=== PATIENT | female | born 1985 | race Caucasian/White ===

== ENCOUNTER 2021-11-08 09:14 | Emergency (ER) | payer BC, SELFPAY ==
[2021-11-08] VITALS (7 sets, daily range): BP systolic 92–107; BP diastolic 49–69; PULSE 61–73; RESP 18–20; TEMP 36.5–37; O2SAT 95–100; BMI 19.7
--- NOTE | 2021-11-08 09:37 | ED_ITS ---
HPI - General Adult General Chief complaint: Headache/Migraine Stated complaint: nausea and headache Time Seen by Provider: 11/08/21 09:25 History of Present Illness HPI narrative: This 35-year-old female comes in moaning with generalized aches and pains including headache. She states that she measured a temperature of a 103? yesterday and 102.7 today. She states that she has been taking ibuprofen and arrives here with a temperature that is normal at 97.7. She reports nausea and vomiting. Related Data Allergies Allergy/AdvReac Type Severity Reaction Status Date / Time amoxicillin Allergy Verified 11/08/21 10:23 clindamycin Allergy Verified 11/08/21 10:23 fentanyl Allergy Verified 11/08/21 09:50 midazolam [From Versed] Allergy Verified 11/08/21 09:50 Review of Systems Status of ROS: Reports: 10 or more systems reviewed and unremarkable except as noted in History and below Narrative: Constitutional: No weight gain or loss. She reports fevers. Eyes: No discharge. No vision changes. HENT: No congestion, no sore throat, no ear pain. Cardiovascular: No chest pain, no palpitations. Respiratory: No shortness of breath, no wheezes, no cough. Gastrointestinal: No abdominal pain, no diarrhea. She has nausea with vomiting. Genitourinary: No dysuria, no hematuria. Musculoskeletal: Normal range of motion. Skin: No rashes, no pruritis. Neurological: No dizziness, weakness, sensory change, speech change. Endo/Heme/Allergies: No bruising or bleeding. No polydipsia. Pysch: no suicidality, no anxiety, no insomnia. All other systems reviewed and are negative. [facility] Social History Smoking Status: Current every day smoker What tobacco products do you use: cigarettes Do you use any of these nicotine containing products: None Second hand tobacco smoke exposure: No How often do you have a drink containing alcohol: never AUDIT-C Alcohol total score: 0 Non-prescribed substance use: marijuana (any form) service: No Exam Narrative: Exam Narrative: Constitutional: Well-developed, well-nourished. She is moaning in generalized aches and pains. HEENT: Normocephalic, atraumatic. Neck: Normal range of motion. Nontender. Supple. Heart: Regular. No murmurs. Normal rate. Intact distal pulses. Lungs: Clear to auscultation. No chest discomfort. No wheezes, rhonchi, or rales. Abdomen: Normal bowel sounds. Nontender. No rebound tenderness. Genitalia: Deferred. Back: No midline tenderness. Normal range of motion. Extremities: Normal range of motion. No injury. Skin: Intact. No rash. Warm. No erythema or pallor. Neurologic: No altered sensation. No weakness. Alert and oriented. Nursing notes and vitals signs are reviewed. Const: Vital Signs, click to edit/add: Vital Signs - 24 hr 11/08/21 09:18 11/08/21 09:30 11/08/21 09:35 Temperature 97.7 F Pulse Rate [Pulse Oximeter] 61 66 65 Respiratory Rate 20 20 Blood Pressure [Le ft Upper Arm] 99/62 107/69 107/69 Pulse Oximetry 100 100 11/08/21 10:00 11/08/21 10:30 Temperature Pulse Rate [Pulse Oximeter] 64 73 Respiratory Rate 18 Blood Pressure [Le ft Upper Arm] 99/59 L 97/59 L Pulse Oximetry 99 98 Course Vital Signs Vital signs: Initial Vital Signs Temperature Source Temporal Artery Scan 11/08/21 09:18 Pulse Rate 61 11/08/21 09:18 Respiratory Rate 20 11/08/21 09:18 Blood Pressure 99/62 11/08/21 09:18 Blood Pressure Mean 74 11/08/21 09:18 Oxygen Delivery Method 11/08/21 09:18 Vital Signs Pulse Rate 61 11/08/21 09:18 Respiratory Rate 20 11/08/21 09:18 Blood Pressure 99/62 11/08/21 09:18 Temperature 97.7 F 11/08/21 09:35 Pulse Rate 73 11/08/21 10:30 Respiratory Rate 18 11/08/21 10:30 Blood Pressure 97/59 L 11/08/21 10:30 Pulse Oximetry 98 11/08/21 10:30 Medical Decision Making MDM Narrative Medical decision making narrative: This patient came in with severe discomfort from headache. She gets severe headaches and this is a typical recurrence. She was reporting a fever so labs were drawn to work this up. Her temperature here has been normal throughout her visit. Lab results also returned with normal findings including no leukocytosis and a normal lactate level. The patient received IV doses normal saline 1 L, Toradol 30 mg, Zofran 4 mg, and Benadryl 50 mg. This brought some relief to her symptoms where she related her headache at 6/10 in severity. She then received 20 mg of ketamine infused slowly over 20-30 minutes. This brought complete relief to her headache. She feels okay to return home and will continue her current plans. Lab Data Labs: Lab Results 11/08/21 11/08/21 11/08/21 Range/Units 09:40 09:40 09:40 WBC 2.72 L (4.50-11.00) K/uL RBC 4.67 (4.00-5.20) m/uL Hgb 14.1 (12.0-16.0) gm/dL Hct 42.2 (33.0-51.0) % MCV 90 (80-100) fL MCH 30 (26-34) pg MCHC 33 (32-36) gm/dL RDW Coeff of [place] 12.8 (11.5-15.5) % Plt Count 141 (140-440) K/uL Neut % (Auto) 78.0 H (42.0-72.0) % Lymph % (Auto) 7.7 L (20-44) % [place] % (Auto) 12.9 H (0.0-11.0) % Eos % (Auto) 0.7 (0.0-7.0) % Baso % (Auto) 0.7 (0.0-3.0) % Neut # (Auto) 2.10 (1.7-7.0) K/uL Lymph # (Auto) 0.20 L (0.90-2.90) K/uL [place] # (Auto) 0.40 (0.00-0.90) K/UL Eos # (Auto) 0.00 (0.00-0.50) K/uL Baso # (Auto) 0.00 (0.00-0.30) K/uL Abs Immat Gran (auto) 0.00 (0.00-0.30) K/uL Sodium 135 (135-149) mmol/L Potassium 3.4 L (3.6-5.1) mmol/L Chloride 106 (96-114) mmol/L Carbon Dioxide 23 (20-32) mmol/L BUN 13 (5-24) mg/dL Creatinine 0.8 (0.5-1.5) mg/dL Estimated Creat Clear 79.29 Estimated GFR 97 ml/min Glucose 88 (60-115) mg/dL Lactate 0.8 (0.5-1.9) mmol/L Calcium 8.6 (8.4-10.6) mg/dL Discharge Plan Discharge Clinical Impression: Headache Patient Disposition: Home, Self-Care Condition: Improved Instructions: Acute Headache (ED) Additional Instructions: Continue current plans. Follow up with MD or return if recurrent or worsening symptoms happen. Follow Up/Referrals: Evon Lange MD [Primary Care Provider] - Stand Alone Forms: [employer] Info Instructions
[2021-11-08 09:50] LABS: Lactate* 0.8 mmol/L (0.5-1.9)
[2021-11-08] MEDS: 0.9 % SODIUM CHLORIDE 1000 ml 1,000 ML IV (09:50)
[2021-11-08 09:51] LABS: Basophils Percent Auto 0.7 % (0.0-3.0); Eosinophils Percent Auto 0.7 % (0.0-7.0); Hematocrit 42.2 % (33.0-51.0); Hemoglobin* 14.1 gm/dL (12.0-16.0); Lymphocytes Percent Auto 7.7 % (20-44); Mean Corpuscular HGB Conc 33 gm/dL (32-36); Mean Corpuscular Hemoglobin 30 pg (26-34); Mean Corpuscular Volume 90 fL (80-100); Monocytes Percent Auto 12.9 % (0.0-11.0); Platelet Count* 141 K/uL (140-440); RDW Coefficient of Variation % 12.8 % (11.5-15.5); Red Blood Count 4.67 m/uL (4.00-5.20); White Blood Count* 2.72 K/uL (4.50-11.00)
[2021-11-08] MEDS: KETOROLAC 30 MG/ML inj IVP (09:56)
[2021-11-08 09:57] LABS: Slide Review Reflex No
[2021-11-08] MEDS: diphenhydrAMINE 50 MG/ML inj IVP (09:57)
[2021-11-08] MEDS: METOCLOPRAMIDE HCL 5 MG/ML INJ 10 MG IV (10:04)
[2021-11-08 10:24] LABS: Chloride* 106 mmol/L (96-114); Potassium* 3.4 mmol/L (3.6-5.1); Sodium* 135 mmol/L (135-149)
[2021-11-08 10:27] LABS: Blood Urea Nitrogen* 13 mg/dL (5-24); Carbon Dioxide* 23 mmol/L (20-32); Creatinine* 0.8 mg/dL (0.5-1.5); Est. Creatinine Clearance* 79.29; Estimated Glomerular Filt Rate 97 ml/min
[2021-11-08 10:28] LABS: Calcium* 8.6 mg/dL (8.4-10.6); Glucose* 88 mg/dL (60-115)
[2021-11-08] MEDS: KETAMINE HCL 20 MG in 0.9 % SODIUM CHLORIDE 100 ml 100 ML 300.6 MG IVPB (10:57)
== END 2021-11-08 11:45 | disposition home or self-care (01) ==
PROVIDERS: Emergency Provider Emergency Medicine Emergency Medical Services; PCP Family Medicine
DX: R51.9 Headache, unspecified (principal)
CPT/HCPCS: 36415; 80048; 83605; 85025; 87040; 96365; 96375; 99284; J1200; J1885; J2765; J3490; J7030

== ENCOUNTER 2021-11-14 15:50 | Emergency (ER) | payer BC, SELFPAY ==
[2021-11-14 16:26] VITALS: BP 116/75; PULSE 66; RESP 18; TEMP 36.8; O2SAT 98; BMI 19.7
--- NOTE | 2021-11-14 18:06 | ED.NURSE ---
Pt walked out of room stating she wanted to just go home. Advised pt that the ER was busy tonight and she would be seen shorty. Pt declined to wait, stating that she wanted to lay down. Pt was in room 4, which was the only room available at the time she was brought back from the lobby. Offered to try to find a physician t see who much longer it would take and pt declined. Offered to give pt the pt advocate information and pt declined. Pt signed refusal of services.
--- NOTE | 2021-11-14 18:30 | ED.NURSE ---
pt left without being seen by ER
== END 2021-11-14 18:06 | disposition left against medical advice (07) ==
PROVIDERS: PCP Family Medicine
DX: Z53.21 Procedure and treatment not carried out due to patient leaving prior to being seen by health care provider (principal)
CPT/HCPCS: 99281

== ENCOUNTER 2022-02-02 19:00 | Emergency (ER) | payer BC, SELFPAY ==
[2022-02-02 19:32] VITALS: BP 145/92; PULSE 64; RESP 16; TEMP 36.8; O2SAT 98; BMI 20.6
--- NOTE | 2022-02-02 20:08 | ED_ITS ---
HPI - Dental/Oral General Chief complaint: Dental/Oral/Mouth Injury/Pain Stated complaint: Tooth Infection Time Seen by Provider: 02/02/22 19:54 History of Present Illness HPI Narrative: Pt is a 36 year old woman who broke a premolar earlier today on the bottom right. She has severe pain. No fever or chills, nausea or vomiting. Pain is sharp. Pt unable to get the pain under control with tylenol or motrin. No further symptoms. Can not get in with dentist today. Related Data Home Medications Medication Instructions Recorded Confirmed citalopram 10 mg tablet 30 mg DAILY 11/14/21 Tylenol 02/02/22 ibuprofen 02/02/22 Allergies Allergy/AdvReac Type Severity Reaction Status Date / Time amoxicillin Allergy Verified 02/02/22 19:36 clindamycin Allergy Verified 02/02/22 19:36 fentanyl Allergy Verified 02/02/22 19:36 midazolam [From Versed] Allergy Verified 02/02/22 19:36 Review of Systems Status of ROS: Reports: 10 or more systems reviewed and unremarkable except as noted in History and below [facility] Social History Smoking Status: Current every day smoker What tobacco products do you use: cigarettes Do you use any of these nicotine containing products: None Second hand tobacco smoke exposure: No How often do you have a drink containing alcohol: never AUDIT-C Alcohol total score: 0 Non-prescribed substance use: marijuana (any form) service: No Exam Narrative: Exam Narrative: EXAM GENERAL: Patient appears acutely uncomfortable. Dental exam shows a chipped premolar in the right lower plate. Mild swelling noted around the gingiva EYES: No scleral icterus. ENT: Tympanic membranes and oropharynx normal. THYROID: no thyroid nodules or thyromegaly. LYMPH: No supraclavicular or cervical lymphadenopathy. SKIN: Visible skin seen during exam normal or with benign process only. EXT: No dependent lower extremity pedal edema. HEART: Regular rate and rhythm with no murmurs, rubs, or gallops. LUNGS: Clear to auscultation bilaterally with no crackles or wheezes. ABD: Soft, non tender, non distended. PSYCH: Good eye contact, speech is not pressured. Const: Vital Signs, click to edit/add: Vital Signs - 24 hr 02/02/22 19:32 Temperature 98.3 F Pulse Rate [Left P ulse Oximeter] 64 Respiratory Rate 16 Blood Pressure [Ri ght Upper Arm] 145/92 H Pulse Oximetry 98 Oxygen Delivery Me thod Room Air Course Vital Signs Vital signs: Initial Vital Signs Temperature 98.3 F 02/02/22 19:32 Temperature Source Temporal Artery Scan 02/02/22 19:32 Pulse Rate 64 02/02/22 19:32 Respiratory Rate 16 02/02/22 19:32 Blood Pressure 145/92 H 02/02/22 19:32 Blood Pressure Mean 109 02/02/22 19:32 Blood Pressure Position Sitting 02/02/22 19:32 Pulse Oximetry 98 02/02/22 19:32 Oxygen Delivery Method 02/02/22 19:32 Vital Signs Temperature 98.3 F 02/02/22 19:32 Pulse Rate 64 02/02/22 19:32 Respiratory Rate 16 02/02/22 19:32 Blood Pressure 145/92 H 02/02/22 19:32 Pulse Oximetry 98 02/02/22 19:32 Oxygen Delivery Method 02/02/22 19:32 Temperature 98.3 F 02/02/22 19:32 Pulse Rate 64 02/02/22 19:32 Respiratory Rate 16 02/02/22 19:32 Blood Pressure 145/92 H 02/02/22 19:32 Pulse Oximetry 98 02/02/22 19:32 Oxygen Delivery Method 02/02/22 19:32 MDM - Dental/Oral MDM Narrative Medical decision making narrative: Pt presents with severe dental pain. No history of narcotic misuse. Pt has no other symptoms and will be treated with Amoxicillin and Arion with Dental follow up. Differential Diagnosis Differential diagnosis: Likely gingival abscess, dental caries, toothache, dental abscess and fracture of tooth Discharge Plan Discharge Clinical Impression: Toothache Patient Disposition: Home, Self-Care Condition: Stable Instructions: Toothache (ED) Additional Instructions: Arion and Amoxicillin as directed Activity Level: No Restrictions Discharge Diet: Regular Prescriptions: No Action citalopram 10 mg tablet 30 mg DAILY ibuprofen Tylenol Follow Up/Referrals: Evon Lange MD [Primary Care Provider] - Stand Alone Forms: [facility] Info Instructions
== END 2022-02-02 20:23 | disposition home or self-care (01) ==
PROVIDERS: Emergency Provider Internal Medicine; PCP Family Medicine
DX: K08.89 Other specified disorders of teeth and supporting structures (principal)
CPT/HCPCS: 99283; 99284

== ENCOUNTER 2022-04-15 15:43 | Emergency (ER) | payer BC, SELFPAY ==
[2022-04-15 16:38] VITALS: BP 117/78; PULSE 67; RESP 16; TEMP 36.6; O2SAT 97; BMI 19.7
[2022-04-15 16:52] LABS: Strep A DNA Probe* NOT DETECTED (Not Detectd)
[2022-04-15 17:05] LABS: PCR FLU A Negative PCR FLU A (Negative); PCR FLU B Negative PCR FLU B (Negative); PCR RSV Negative PCR RSV (Negative)
[2022-04-15 17:06] LABS: SARS PCR* Negative SARS-CoV-2 (Negative)
--- NOTE | 2022-04-15 17:27 | ED_ITS ---
HPI - General Adult General Chief complaint: Sore Throat Stated complaint: Requests a strep test Time Seen by Provider: 04/15/22 16:34 History of Present Illness HPI narrative: This 36-year-old female comes in reporting sore throat and cough for the past couple weeks. She states that her sore throat has worsened so she comes in requesting a strep test. She states that she is a smoker. 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 She does not report any fevers. Related Data Home Medications Medication Instructions Recorded Confirmed citalopram 10 mg tablet 30 mg DAILY 11/14/21 Tylenol 02/02/22 ibuprofen 02/02/22 Previous Rx's Medication Instructions Recorded azithromycin 250 mg tablet See Rx Instructions PO .COMPLEX #6 04/15/22 (Zithromax Z-Vinod) tabs Allergies Allergy/AdvReac Type Severity Reaction Status Date / Time amoxicillin Allergy Verified 02/02/22 19:36 clindamycin Allergy Verified 02/02/22 19:36 fentanyl Allergy Verified 02/02/22 19:36 midazolam [From Versed] Allergy Verified 02/02/22 19:36 Review of Systems Status of ROS: Reports: 10 or more systems reviewed and unremarkable except as noted in History and below Narrative: Constitutional: No fevers, no weight gain or loss. Eyes: No discharge. No vision changes. HENT: No congestion, no ear pain. Sore throat. Cardiovascular: No chest pain, no palpitations. Respiratory: No shortness of breath, no wheezes. Productive cough. Gastrointestinal: No abdominal pain, no vomiting, no diarrhea. Genitourinary: No dysuria, no hematuria. Musculoskeletal: Normal range of motion. Skin: No rashes, no pruritis. Neurological: No dizziness, weakness, sensory change, speech change. Endo/Heme/Allergies: No bruising or bleeding. No polydipsia. Pysch: no suicidality, no anxiety, no insomnia. All other systems reviewed and are negative. [facility] Social History Smoking Status: Current every day smoker What tobacco products do you use: cigarettes Do you use any of these nicotine containing products: None Second hand tobacco smoke exposure: No How often do you have a drink containing alcohol: never AUDIT-C Alcohol total score: 0 Non-prescribed substance use: marijuana (any form) service: No Exam Narrative: Exam Narrative: Constitutional: Well-developed, well-nourished, no acute distress. HEENT: Normocephalic, atraumatic. Moderate tonsillar hypertrophy with erythema and exudate bilaterally. Neck: Normal range of motion. Nontender. Supple. Heart: Regular. No murmurs. Normal rate. Intact distal pulses. Lungs: Clear to auscultation. No chest discomfort. No wheezes, rhonchi, or rales. Abdomen: Normal bowel sounds. Nontender. No rebound tenderness. Genitalia: Deferred. Back: No midline tenderness. Normal range of motion. Extremities: Normal range of motion. No injury. Skin: Intact. No rash. Warm. No erythema or pallor. Neurologic: No altered sensation. No weakness. Alert and oriented. Psychiatric: No suicidality. No anxiety or depression. No insomnia. Nursing notes and vitals signs are reviewed. Const: Vital Signs, click to edit/add: Vital Signs - 24 hr 04/15/22 16:38 Temperature 97.9 F Pulse Rate [Right Pulse Oximeter] 67 Respiratory Rate 16 Blood Pressure [Ri ght Upper Arm] 117/78 Pulse Oximetry 97 Oxygen Delivery Me thod Room Air Course Vital Signs Vital signs: Initial Vital Signs Temperature 97.9 F 04/15/22 16:38 Temperature Source Temporal Artery Scan 04/15/22 16:38 Pulse Rate 67 04/15/22 16:38 Pulse Rhythm 04/15/22 16:38 Respiratory Rate 16 04/15/22 16:38 Blood Pressure 117/78 04/15/22 16:38 Blood Pressure Mean 91 04/15/22 16:38 Blood Pressure Position Sitting 04/15/22 16:38 Pulse Oximetry 97 04/15/22 16:38 Oxygen Delivery Method 04/15/22 16:38 Vital Signs Temperature 97.9 F 04/15/22 16:38 Pulse Rate 67 04/15/22 16:38 Respiratory Rate 16 04/15/22 16:38 Blood Pressure 117/78 04/15/22 16:38 Pulse Oximetry 97 04/15/22 16:38 Oxygen Delivery Method 04/15/22 16:38 Temperature 97.9 F 04/15/22 16:38 Pulse Rate 67 04/15/22 16:38 Respiratory Rate 16 04/15/22 16:38 Blood Pressure 117/78 04/15/22 16:38 Pulse Oximetry 97 04/15/22 16:38 Oxygen Delivery Method 04/15/22 16:38 Medical Decision Making MDM Narrative Medical decision making narrative: This patient comes in with upper respiratory symptoms that is most prominently a sore throat. She is a smoker. Strep test returns negative as does testing for COVID, influenza, and RSV. She has had symptoms for a couple weeks and the examination of her oropharynx does show tonsillar hypertrophy with exudate. She received a prescription for Zithromax. Lab Data Labs: Lab Results 04/15/22 04/15/22 Range/Units 16:06 16:06 SARS-CoV-2 (PCR) Negative SARS-CoV-2 (Negative) Influenza Type A (PCR) Negative PCR FLU A (Negative) Influenza Type B (PCR) Negative PCR FLU B (Negative) RSV (PCR) Negative PCR RSV (Negative) Group A Strep DNA NOT DETECTED (Not Detectd) Discharge Plan Discharge Clinical Impression: Acute tonsillitis Patient Disposition: Home, Self-Care Condition: Unchanged Additional Instructions: Take medication as prescribed. Follow up with MD or return if worsening. Prescriptions: New azithromycin [Zithromax Z-Vinod] 250 mg tablet See Rx Instructions .ROUTE .COMPLEX Qty: 6 0RF Rx Instructions: For 250 mg dose pack: take 500 mg today (day 1), then 250 mg for 4 days (days 2-5) No Action citalopram 10 mg tablet 30 mg DAILY ibuprofen Tylenol Follow Up/Referrals: Evon Lange MD [Primary Care Provider] - Stand Alone Forms: [employer] Info Instructions
== END 2022-04-15 18:20 | disposition home or self-care (01) ==
PROVIDERS: Emergency Provider Emergency Medicine Emergency Medical Services; PCP Family Medicine
DX: J03.90 Acute tonsillitis, unspecified (principal)
CPT/HCPCS: 87502; 87634; 87635; 87651; 99283; 99284

== ENCOUNTER 2022-11-29 11:44 | Emergency (ER) | payer BC, SELFPAY ==
[2022-11-29 11:47] VITALS: BP 135/77; PULSE 76; RESP 20; TEMP 36.7; BMI 21.6
--- NOTE | 2022-11-29 12:27 | ED_ITS ---
HPI - Back Pain/Injury General Chief Complaint: Back Injury/Pain Stated Complaint: back injury Time Seen by Provider: 11/29/22 11:48 History of Present Illness HPI Narrative: This 37-year-old female comes in reporting severe low back pain radiating down her whole left leg. This pain began about a week ago and has worsened since then. She does have a prior history of lumbar radiculopathy and has had therapeutic injections in the past. She states that her symptoms today feel worse. She does not report any altered bowel or urinary function and does not have saddle anesthesia. She has been taking Tylenol without much relief. She does not report any specific injury event. She did move to a new living situation about a week ago and this may have triggered some symptoms for her. She did present to a chiropractor who did do a straight leg raise it elicited pain with minimal elevation of her leg. He did manipulate her also and she states that she has been feeling worse since then. Related Data Home Medications Medication Instructions Recorded Confirmed citalopram 10 mg tablet 30 mg DAILY 11/14/21 Tylenol 02/02/22 ibuprofen 02/02/22 Previous Rx's Medication Instructions Recorded azithromycin 250 mg tablet See Rx Instructions PO .COMPLEX #6 04/15/22 (Zithromax Z-Vinod) tabs gabapentin 100 mg capsule 100 mg PO TID #30 caps 11/29/22 hydrocodone 5 mg-acetaminophen 325 1 tab PO Q4-6H PRN pain #20 tabs 11/29/22 mg tablet methylprednisolone 4 mg tablets in See Rx Instructions PO .COMPLEX 11/29/22 a dose pack (Medrol (Vinod)) #21 ea tizanidine 4 mg capsule (Zanaflex) 4 mg PO TID PRN muscle spasticity 11/29/22 #20 caps Allergies Allergy/AdvReac Type Severity Reaction Status Date / Time amoxicillin Allergy Verified 02/02/22 19:36 clindamycin Allergy Verified 02/02/22 19:36 fentanyl Allergy Verified 02/02/22 19:36 midazolam [From Versed] Allergy Verified 02/02/22 19:36 Review of Systems Status of ROS: Reports: 10 or more systems reviewed and unremarkable except as noted in History and below Narrative: Constitutional: No fevers, no weight gain or loss. Eyes: No discharge. No vision changes. HENT: No congestion, no sore throat, no ear pain. Cardiovascular: No chest pain, no palpitations. Respiratory: No shortness of breath, no wheezes, no cough. Gastrointestinal: No abdominal pain, no vomiting, no diarrhea. Genitourinary: No dysuria, no hematuria. Musculoskeletal: Low back pain radiating down the left leg as described above. Skin: No rashes, no pruritis. Neurological: No dizziness, weakness, sensory change, speech change. Endo/Heme/Allergies: No bruising or bleeding. No polydipsia. Pysch: no suicidality, no anxiety, no insomnia. All other systems reviewed and are negative. [facility] Social History Smoking Status: Current every day smoker What tobacco products do you use: cigarettes Smoking packs per day: 0.25 Smoking cigarettes per day: 5.0 Do you use any of these nicotine containing products: None Second hand tobacco smoke exposure: No How often do you have a drink containing alcohol: never How often do you have six or more drinks on one occasion: Never AUDIT-C Alcohol total score: 0 Non-prescribed substance use: denies use service: No Exam Narrative: Exam Narrative: Constitutional: Well-developed, well-nourished, no acute distress. HEENT: Normocephalic, atraumatic. Neck: Normal range of motion. Nontender. Supple. Heart: Regular. No murmurs. Normal rate. Intact distal pulses. Lungs: Clear to auscultation. No chest discomfort. No wheezes, rhonchi, or rales. Abdomen: Normal bowel sounds. Nontender. No rebound tenderness. Genitalia: Deferred. Back: No midline tenderness. Pain is just left of midline and radiating down her whole left leg her. Extremities: Normal range of motion. No injury. Skin: Intact. No rash. Warm. No erythema or pallor. Neurologic: No altered sensation. No weakness. Alert and oriented. Psychiatric: No suicidality. No anxiety or depression. No insomnia. Nursing notes and vitals signs are reviewed. Const: Vital Signs, click to edit/add: Vital Signs - 24 hr 11/29/22 11:47 Temperature 98.1 F Pulse Rate [Pulse Oximeter] 76 Respiratory Rate 20 Blood Pressure [Le ft Upper Arm] 135/77 Oxygen Delivery Me thod Room Air Course Vital Signs Vital signs: Initial Vital Signs Temperature 98.1 F 11/29/22 11:47 Temperature Source Temporal Artery Scan 11/29/22 11:47 Pulse Rate 76 11/29/22 11:47 Pulse Rhythm Regular 11/29/22 11:47 Respiratory Rate 20 11/29/22 11:47 Blood Pressure 135/77 11/29/22 11:47 Blood Pressure Mean 96 11/29/22 11:47 Blood Pressure Position Right Lateral 11/29/22 11:47 Oxygen Delivery Method Room Air 11/29/22 11:47 Vital Signs Temperature 98.1 F 11/29/22 11:47 Pulse Rate 76 11/29/22 11:47 Respiratory Rate 20 11/29/22 11:47 Blood Pressure 135/77 11/29/22 11:47 Oxygen Delivery Method Room Air 11/29/22 11:47 Temperature 98.1 F 11/29/22 11:47 Pulse Rate 76 11/29/22 11:47 Respiratory Rate 20 11/29/22 11:47 Blood Pressure 135/77 11/29/22 11:47 Oxygen Delivery Method Room Air 11/29/22 11:47 MDM - Back Pain/Injury MDM Narrative Medical decision making narrative: This patient comes in with low back pain typical of lumbar radiculopathy. This is a recurring condition for her but she reports the symptoms arm much more pronounced this time. She is not showing signs of cauda equina syndrome. There was no mechanism of injury that mandates imaging at this time. She may need an MRI in the future. For now she received an intramuscular injection of Toradol 15 mg and prescriptions for [place], Zanaflex, and Medrol Dosepak. I advised her to follow-up with the spine clinic for further evaluation and treatment or return if worsening symptoms happen. Discharge Plan Discharge Clinical Impression: Lumbar radiculopathy Patient Disposition: Home, Self-Care Condition: Unchanged Additional Instructions: Take medication as prescribed. Activity as tolerated. Follow up with [facility] for ongoing management. Call [phone] for appointment. Return if worsening. Prescriptions: New hydrocodone-acetaminophen 5-325 mg tablet 1 tab PO Q4-6H PRN (Reason: pain) Qty: 20 0RF methylprednisolone [Medrol (Vinod)] 4 mg tablets,dose pack See Rx Instructions .ROUTE .COMPLEX Qty: 21 0RF Rx Instructions: orally per package directions tizanidine [Zanaflex] 4 mg capsule 4 mg PO TID PRN (Reason: muscle spasticity) Qty: 20 0RF gabapentin 100 mg capsule 100 mg PO TID Qty: 30 2RF No Action azithromycin [Zithromax Z-Vinod] 250 mg tablet See Rx Instructions .ROUTE .COMPLEX Qty: 6 0RF Rx Instructions: For 250 mg dose pack: take 500 mg today (day 1), then 250 mg for 4 days (days 2-5) citalopram 10 mg tablet 30 mg DAILY ibuprofen Tylenol Follow Up/Referrals: Evon Lange MD [Primary Care Provider] - Stand Alone Forms: [employer] Info Instructions
[2022-11-29] MEDS: KETOROLAC 30 MG/ML inj 15 MG IM (12:31)
== END 2022-11-29 12:45 | disposition home or self-care (01) ==
LOC: ED 12:44
PROVIDERS: Emergency Provider Emergency Medicine Emergency Medical Services; PCP Family Medicine
DX: M54.16 Radiculopathy, lumbar region (principal)
CPT/HCPCS: 96372; 99283; 99284; J1885

== ENCOUNTER 2023-02-15 12:10 | Emergency (ER) | payer BC, SELFPAY ==
[2023-02-15 12:37] VITALS: BP 165/95; PULSE 67; RESP 18; TEMP 36.5; O2SAT 97
--- NOTE | 2023-02-15 13:08 | ED_ITS ---
HPI - General Adult General Stated complaint: Migraine Time Seen by Provider: 02/15/23 12:35 History of Present Illness HPI narrative: This 37-year-old female reports a headache that began a couple days ago. She states that it was a migraine which she has had in the past. She had nausea with intense vomiting. She states now that her headache is feeling better but still has some nausea and does not feel right. She does not report any fevers. She is not reporting any neurologic deficits. 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 She comes in some concern about recurrence of something of that nature. Related Data Home Medications Medication Instructions Recorded Confirmed citalopram 20 mg tablet 20 mg PO DAILY 02/15/23 02/15/23 Previous Rx's Medication Instructions Recorded ketorolac 10 mg tablet 10 mg PO Q8H 5 days #15 tabs 02/15/23 ondansetron HCl 4 mg tablet 4 mg PO Q6H #10 tabs 02/15/23 Allergies Allergy/AdvReac Type Severity Reaction Status Date / Time amoxicillin Allergy Verified 02/02/22 19:36 clindamycin Allergy Verified 02/02/22 19:36 fentanyl Allergy Verified 02/02/22 19:36 midazolam [From Versed] Allergy Verified 02/02/22 19:36 Review of Systems Status of ROS: Reports: 10 or more systems reviewed and unremarkable except as noted in History and below Narrative: Constitutional: No fevers, no weight gain or loss. Eyes: No discharge. No vision changes. HENT: No congestion, no sore throat, no ear pain. Cardiovascular: No chest pain, no palpitations. Respiratory: No shortness of breath, no wheezes, no cough. Gastrointestinal: No abdominal pain, no diarrhea. Nausea with vomiting. Genitourinary: No dysuria, no hematuria. Musculoskeletal: Normal range of motion. Skin: No rashes, no pruritis. Neurological: No dizziness, weakness, sensory change, speech change. Endo/Heme/Allergies: No bruising or bleeding. No polydipsia. Pysch: no suicidality, no anxiety, no insomnia. All other systems reviewed and are negative. PFSH PFSH Social History Smoking Status: Current every day smoker What tobacco products do you use: cigarettes Smoking packs per day: 0.25 Smoking cigarettes per day: 5.0 Do you use any of these nicotine containing products: None Second hand tobacco smoke exposure: No How often do you have a drink containing alcohol: never How often do you have six or more drinks on one occasion: Never AUDIT-C Alcohol total score: 0 Non-prescribed substance use: denies use service: No Exam Narrative: Exam Narrative: Constitutional: Well-developed, well-nourished, no acute distress. HEENT: Normocephalic, atraumatic. Neck: Normal range of motion. Nontender. Supple. Heart: Regular. No murmurs. Normal rate. Intact distal pulses. Lungs: Clear to auscultation. No chest discomfort. No wheezes, rhonchi, or rales. Abdomen: Normal bowel sounds. Nontender. No rebound tenderness. Genitalia: Deferred. Back: No midline tenderness. Normal range of motion. Extremities: Normal range of motion. No injury. Skin: Intact. No rash. Warm. No erythema or pallor. Neurologic: No altered sensation. No weakness. Alert and oriented. Psychiatric: No suicidality. No anxiety or depression. No insomnia. Nursing notes and vitals signs are reviewed. Const: Vital Signs, click to edit/add: Vital Signs - 24 hr 02/15/23 12:37 Temperature 97.7 F Pulse Rate [Right Pulse Oximeter] 67 Respiratory Rate 18 Blood Pressure [Ri ght Upper Arm] 165/95 H Pulse Oximetry 97 Oxygen Delivery Me thod Room Air Course Vital Signs Vital signs: Initial Vital Signs Temperature 97.7 F 02/15/23 12:37 Temperature Source Temporal Artery Scan 02/15/23 12:37 Pulse Rate 67 02/15/23 12:37 Respiratory Rate 18 02/15/23 12:37 Blood Pressure 165/95 H 02/15/23 12:37 Blood Pressure Mean 118 H 02/15/23 12:37 Blood Pressure Position Sitting 02/15/23 12:37 Pulse Oximetry 97 02/15/23 12:37 Oxygen Delivery Method Room Air 02/15/23 12:37 Vital Signs Temperature 97.7 F 02/15/23 12:37 Pulse Rate 67 02/15/23 12:37 Respiratory Rate 18 02/15/23 12:37 Blood Pressure 165/95 H 02/15/23 12:37 Pulse Oximetry 97 02/15/23 12:37 Oxygen Delivery Method Room Air 02/15/23 12:37 Temperature 97.7 F 02/15/23 12:37 Pulse Rate 67 02/15/23 12:37 Respiratory Rate 18 02/15/23 12:37 Blood Pressure 165/95 H 02/15/23 12:37 Pulse Oximetry 97 02/15/23 12:37 Oxygen Delivery Method Room Air 02/15/23 12:37 Medical Decision Making MDM Narrative Medical decision making narrative: This patient comes in reporting a migraine headache. She states that she has not had a migraine headache for more than a year but this 1 was rather intense. Her symptoms of headache and vomiting have dissipated but she still feels some nausea and states that she does not feel right. She has a remote history of a brain bleed that was spontaneous and that is part of the reason for her visit here. I did discuss CT imaging of her head which the patient was initially interested in but later stated it is not needed. She is not exhibiting any signs or symptoms suspicious for intracranial process that would show up on CT imaging. Additionally the patient had an IV established and labs are acquired. Lab results returned also with reassuring findings. The patient received IV doses of Toradol 15 mg, Benadryl 25 mg, and Zofran 4 mg. The patient states that she is feeling better and feels okay to return home. She did received prescriptions for Toradol and Zofran. Lab Data Labs: Lab Results 02/15/23 Range/Units 13:35 WBC 6.59 (4.50-11.00) K/uL RBC 4.81 (4.00-5.20) m/uL Hgb 15.0 (12.0-16.0) gm/dL Hct 45.3 (33.0-51.0) % MCV 94 (80-100) fL MCH 31 (26-34) pg MCHC 33 (32-36) gm/dL RDW Coeff of Katiana 12.3 (11.5-15.5) % Plt Count 245 (140-440) K/uL Neut % (Auto) 64.9 (42.0-72.0) % Lymph % (Auto) 22.3 (20-44) % [place] % (Auto) 8.0 (0.0-11.0) % Eos % (Auto) 4.1 (0.0-7.0) % Baso % (Auto) 0.5 (0.0-3.0) % Neut # (Auto) 4.28 (1.7-7.0) K/uL Lymph # (Auto) 1.47 (0.90-2.90) K/uL [place] # (Auto) 0.50 (0.00-0.90) K/UL Eos # (Auto) 0.27 (0.00-0.50) K/uL Baso # (Auto) 0.03 (0.00-0.30) K/uL Abs Immat Gran (auto) 0.01 (0.00-0.30) K/uL Imm/Tot Granulo (auto) 0.2 % Sodium 136 (135-149) mmol/L Potassium 3.5 L (3.6-5.1) mmol/L Chloride 104 (96-114) mmol/L Carbon Dioxide 28 (20-32) mmol/L Anion Gap 4 L (7-15) mEq/L BUN 10 (5-24) mg/dL Creatinine 0.6 (0.5-1.5) mg/dL Estimated GFR 117 ml/min Glucose 106 (60-115) mg/dL Calcium 9.2 (8.4-10.6) mg/dL Discharge Plan Discharge Clinical Impression: Migraine Patient Disposition: Home, Self-Care Condition: Improved Additional Instructions: Take medication as needed and indicated. Follow up with MD or return if symptoms are recurrent or worsening. Prescriptions: New ondansetron HCl 4 mg tablet 4 mg PO Q6H Qty: 10 0RF ketorolac 10 mg tablet 10 mg PO Q8H 5 Days Qty: 15 0RF No Action citalopram 20 mg tablet 20 mg PO DAILY Follow Up/Referrals: Evon Lange MD [Primary Care Provider] - Stand Alone Forms: [facility] Info Instructions
[2023-02-15] MEDS: 0.9 % SODIUM CHLORIDE 1000 ml 1,000 ML IV (13:39)
[2023-02-15] MEDS: ONDANSETRON 2 MG/ML inj 4 MG IVP (13:40)
[2023-02-15] MEDS: diphenhydrAMINE 50 MG/ML inj 25 MG IVP (13:40)
[2023-02-15] MEDS: KETOROLAC 15 MG/ML inj IVP (13:40)
[2023-02-15 13:56] LABS: Eosinophils Percent Auto 4.1 % (0.0-7.0); Hematocrit 45.3 % (33.0-51.0); Lymphocytes Percent Auto 22.3 % (20-44); Mean Corpuscular HGB Conc 33 gm/dL (32-36); Mean Corpuscular Hemoglobin 31 pg (26-34); Mean Corpuscular Volume 94 fL (80-100); Neutrophils Percent Auto 64.9 % (42.0-72.0); Platelet Count* 245 K/uL (140-440); RDW Coefficient of Variation % 12.3 % (11.5-15.5); Red Blood Count 4.81 m/uL (4.00-5.20); White Blood Count* 6.59 K/uL (4.50-11.00)
[2023-02-15 13:57] LABS: Basophils Absolute Auto 0.03 K/uL (0.00-0.30); Basophils Percent Auto 0.5 % (0.0-3.0); Eosinophils Absolute Auto 0.27 K/uL (0.00-0.50); Immature Granulocytes Abs Auto 0.01 K/uL (0.00-0.30); Immature Granulocytes Pct Auto 0.2 %; Lymphocytes Absolute Auto 1.47 K/uL (0.90-2.90); Neutrophils Absolute Auto 4.28 K/uL (1.7-7.0)
[2023-02-15 14:06] LABS: Chloride* 104 mmol/L (96-114)
[2023-02-15 14:07] LABS: Potassium* 3.5 mmol/L (3.6-5.1); Sodium* 136 mmol/L (135-149)
[2023-02-15 14:09] LABS: Creatinine* 0.6 mg/dL (0.5-1.5); Estimated Glomerular Filt Rate 117 ml/min
[2023-02-15 14:10] LABS: Anion Gap 4 mEq/L (7-15); Blood Urea Nitrogen* 10 mg/dL (5-24); Calcium* 9.2 mg/dL (8.4-10.6); Carbon Dioxide* 28 mmol/L (20-32); Glucose* 106 mg/dL (60-115)
[2023-02-15 14:12] LABS: Slide Review Reflex No
[2023-02-15 15:09] LABS: Ferritin* 47.3 ng/mL (6.24-137.0)
== END 2023-02-15 14:59 | disposition home or self-care (01) ==
PROVIDERS: Emergency Provider Emergency Medicine Emergency Medical Services; PCP Family Medicine
DX: G43.909 Migraine, unspecified, not intractable, without status migrainosus (principal)
CPT/HCPCS: 36415; 80048; 82728; 85025; 96374; 96375; 99284; J1200; J1885; J2405; J7030

== ENCOUNTER 2023-02-19 09:19 | Emergency (ER) | payer BC, SELFPAY ==
[2023-02-19 09:31] VITALS: BP 137/94; PULSE 73; RESP 20; TEMP 36.4; O2SAT 96; BMI 22.5
--- NOTE | 2023-02-19 10:10 | ED.GENADULT ---
HPI - General Adult General Chief complaint: Hip Injury/Pain Stated complaint: L hip pain Time Seen by Provider: 02/19/23 09:39 History of Present Illness HPI narrative: reports worsening left hip radiating to toes. toes feel numb. has hx of herniated disc in the past L5-S1. denies problems with bladder or stools. pain is worsening and unable to move without excruciating pain. never had this in the past. was vomiting from the pain. 37-year-old woman presenting to emergency department with complaint of severe pain radiating down her left buttock thigh leg in to her feet. Is feeling cold at 1 point and all of her toes were tingly. She is having trouble describing exactly where it is running in her leg other than posterior buttock to the lateral thigh. Is not actually weak but not able to bear weight due to pain. Was crying in the car so came to help her out of the car and into the emergency department. She notes a history of a lumbar radiculopathy. Sounds like it might be L5-S1. Has been treated at [facility] with epidurals following MRIs but is been quite some time. She started to have some pain earlier in the week and then it just really escalated over the last couple of days were she was sitting in class. Related Data Home Medications Medication Instructions Recorded Confirmed citalopram 20 mg tablet 20 mg PO DAILY 02/15/23 02/15/23 Previous Rx's Medication Instructions Recorded ketorolac 10 mg tablet 10 mg PO Q8H 5 days #15 tabs 02/15/23 ondansetron HCl 4 mg tablet 4 mg PO Q6H #10 tabs 02/15/23 Allergies Allergy/AdvReac Type Severity Reaction Status Date / Time amoxicillin Allergy Verified 02/02/22 19:36 clindamycin Allergy Verified 02/02/22 19:36 fentanyl Allergy Verified 02/02/22 19:36 midazolam [From Versed] Allergy Verified 02/02/22 19:36 Review of Systems Status of ROS: Reports: 6 or more systems reviewed and unremarkable except as noted in History and below [facility] Social History Smoking Status: Current every day smoker What tobacco products do you use: cigarettes Smoking packs per day: 0.5 Smoking cigarettes per day: 10.0 Do you use any of these nicotine containing products: None Second hand tobacco smoke exposure: No How often do you have a drink containing alcohol: never How often do you have six or more drinks on one occasion: Never AUDIT-C Alcohol total score: 0 Non-prescribed substance use: denies use service: No Exam Narrative: Exam Narrative: Very pleasant. Lying on her right side in bed with leg slightly bent and a pillow between the knees. Sounds a little congested in the nasopharynx not inconsistent with crying. Does not have midline back tenderness or swelling. No SI joint tenderness. Not really with exclusive piriformis tenderness either. Little difficult to the reproduce this pain other than straight leg raise. Well-perfused peripherally without edema. Sensation intact. Good strength to dorsiflexion plantar flexion at the ankle and extension flexion at the knee. Const: Vital Signs, click to edit/add: Vital Signs - 24 hr 02/19/23 09:31 Temperature 97.6 F Pulse Rate [Pulse Oximeter] 73 Respiratory Rate 20 Blood Pressure [Ri ght Upper Arm] 137/94 H Pulse Oximetry 96 Oxygen Delivery Me thod Room Air Documenting provider has reviewed patient's vital signs: yes Course Vital Signs Vital signs: Initial Vital Signs Temperature 97.6 F 02/19/23 09:31 Temperature Source Temporal Artery Scan 02/19/23 09:31 Pulse Rate 73 02/19/23 09:31 Pulse Rhythm Regular 02/19/23 09:31 Respiratory Rate 20 02/19/23 09:31 Blood Pressure 137/94 H 02/19/23 09:31 Blood Pressure Mean 108 H 02/19/23 09:31 Blood Pressure Position Supine 02/19/23 09:31 Pulse Oximetry 96 02/19/23 09:31 Oxygen Delivery Method Room Air 02/19/23 09:31 Vital Signs Temperature 97.6 F 02/19/23 09:31 Pulse Rate 73 02/19/23 09:31 Respiratory Rate 20 02/19/23 09:31 Blood Pressure 137/94 H 02/19/23 09:31 Pulse Oximetry 96 02/19/23 09:31 Oxygen Delivery Method Room Air 02/19/23 09:31 Temperature 97.6 F 02/19/23 09:31 Pulse Rate 73 02/19/23 09:31 Respiratory Rate 20 02/19/23 09:31 Blood Pressure 137/94 H 02/19/23 09:31 Pulse Oximetry 96 02/19/23 09:31 Oxygen Delivery Method Room Air 02/19/23 09:31 Medical Decision Making MDM Narrative Medical decision making narrative: Sounds like it has been years since she had an MRI. Distribution would be suspicious for worsening of this L5-S1 but I am not exactly sure could be multiple levels as well. I would presume lumbar radiculopathy is diagnosis. Does not appear to have any infectious etiology and there was no trauma. Might be helpful to have repeat imaging going forward although has had care at [facility] and might want to continue there. It is going to be somewhat hours before we have MRI availability here. Will go ahead and treat though with prednisone, injection of Dilaudid and ibuprofen. MRIs resulted Multiplanar, multisequence MRI of the lumbar spine was performed without intravenous contrast. Comparison: None relevant available. Findings: There are 5 lumbar type vertebral segments identified. The vertebral body heights are maintained without evidence of fracture. There is no discrete T1 hypointense marrow infiltrating process. The conus medullaris terminates at L1, normal. Cauda equina appears unremarkable. T12-L1: No spinal canal or neural foraminal stenosis. L1-2: No spinal canal or neural foraminal stenosis. L2-3: No spinal canal or neural foraminal stenosis. L3-4: No spinal canal or neural foraminal stenosis. L4-5: Disc degeneration. Disc bulge coupled with facet hypertrophy resulting in [id number] left and mild right lateral recess narrowing with overall mild spinal canal narrowing. Encroachment upon the left greater than right descending L5 nerves. Mild neural foraminal narrowing. Moderate facet arthropathy. L5-S1: Disc degeneration. Small central annular fissure. No spinal canal or neural foraminal narrowing. Mild facet arthropathy. The visualized sacroiliac joints appear patent. Impression: 1. At L4-5, disc degeneration resulting in mild to moderate left and mild right lateral recess narrowing. Encroachment upon the left greater than right descending L5 nerves. 2. [id number]-[id number] lower lumbar spine facet arthropathy. Over time in the emergency department did require further efforts at pain management. Did receive a L of normal saline, ketamine infusion and then ultimately 2 tabs of Percocet. Pain improved though still present. Work note. See patient discharge plan Discharge Plan Discharge Clinical Impression: Radicular low back pain Patient Disposition: Home w/ Parent or Adult Condition: Improved Additional Instructions: Take this disc with you to follow-up appointments. Might want to schedule with [facility] again. See handout for some ideas for stretches/strengthening. Percocet, cyclobenzaprine, prednisone from [facility]. Ibuprofen can be combined with any of the above; up to 800 mg per dose. Alternative to the ibuprofen might be up to 500 mg of naproxen 2 times daily. Prescriptions: No Action citalopram 20 mg tablet 20 mg PO DAILY ondansetron HCl 4 mg tablet 4 mg PO Q6H Qty: 10 0RF ketorolac 10 mg tablet 10 mg PO Q8H 5 Days Qty: 15 0RF Follow Up/Referrals: Evon Lange MD [Primary Care Provider] - Stand Alone Forms: [facility] Info Instructions
[2023-02-19] MEDS: predniSONE 20 MG TABLET 80 MG PO (10:47)
[2023-02-19] MEDS: IBUPROFEN 400 MG TABLET 800 MG PO (10:47)
[2023-02-19] MEDS: HYDROmorphone 0.5 mg/0.5 ml inj 1 MG IM (10:47)
[2023-02-19] MEDS: 0.9 % SODIUM CHLORIDE 1000 ml 1,000 ML IV (12:17)
[2023-02-19] MEDS: KETAMINE HCL 20 MG in 0.9 % SODIUM CHLORIDE 100 ml 100 ML 300.6 MG IVPB (12:17)
--- NOTE | 2023-02-19 13:10 | CRLHL7_ITS ---
For Patients: As a result of the Century Cures Act, medical imaging exams and procedure reports are released immediately into your electronic medical record. You may view this report before your referring provider. If you have questions, please contact your health care provider. Indication: Radiculopathy. Technique: Multiplanar, multisequence MRI of the lumbar spine was performed without intravenous contrast. Comparison: None relevant available. Findings: There are 5 lumbar type vertebral segments identified. The vertebral body heights are maintained without evidence of fracture. There is no discrete T1 hypointense marrow infiltrating process. The conus medullaris terminates at L1, normal. Cauda equina appears unremarkable. T12-L1: No spinal canal or neural foraminal stenosis. L1-2: No spinal canal or neural foraminal stenosis. L2-3: No spinal canal or neural foraminal stenosis. L3-4: No spinal canal or neural foraminal stenosis. L4-5: Disc degeneration. Disc bulge coupled with facet hypertrophy resulting in [id number] left and mild right lateral recess narrowing with overall mild spinal canal narrowing. Encroachment upon the left greater than right descending L5 nerves. Mild neural foraminal narrowing. Moderate facet arthropathy. L5-S1: Disc degeneration. Small central annular fissure. No spinal canal or neural foraminal narrowing. Mild facet arthropathy. The visualized sacroiliac joints appear patent. Impression: 1. At L4-5, disc degeneration resulting in mild to moderate left and mild right lateral recess narrowing. Encroachment upon the left greater than right descending L5 nerves. 2. Krig-jn-dsexjuyu lower lumbar spine facet arthropathy. Dictated by Darrel Wilkinson MD @ 02/19/2023 2:01:59 PM (Electronically Signed)
[2023-02-19] MEDS: OxyCODONE/APAP 5-325 TABLET 2 TAB PO (13:21)
== END 2023-02-19 16:03 | disposition home or self-care (01) ==
PROVIDERS: Emergency Provider Family Medicine; PCP Family Medicine
DX: M54.16 Radiculopathy, lumbar region (principal)
CPT/HCPCS: 72148; 96365; 96372; 99283; 99284; A9270; J1170; J3490; J7030; J7512

== ENCOUNTER 2023-04-13 00:30 | Emergency (ER) | payer BC, SELFPAY ==
[2023-04-13 00:35] VITALS: BP 152/95; PULSE 72; RESP 20; TEMP 36.8; O2SAT 98; BMI 21.6
--- NOTE | 2023-04-13 01:03 | CRLHL7_ITS ---
For Patients: As a result of the Century Cures Act, medical imaging exams and procedure reports are released immediately into your electronic medical record. You may view this report before your referring provider. If you have questions, please contact your health care provider. INDICATION: Abdominal pain, bloody stools TECHNIQUE: CT abdomen and pelvis acquired with 64 cc Isovue 370 IV contrast. Permanently recorded images are archived. COMPARISON: None. FINDINGS: Lower chest: Unremarkable. Liver: Unremarkable. Normal in size and contour. No suspicious masses. Gallbladder and bile ducts: Unremarkable. No stones or inflammation. No biliary dilatation. Pancreas: Unremarkable. No mass or inflammation. Spleen: Unremarkable. Normal in size. No masses. Adrenal glands: Unremarkable. No nodules. Kidneys, Ureters, and Bladder: Unremarkable. No suspicious masses, stones, or hydronephrosis. Evaluation of the distal ureters is limited due to lack of intra-abdominal fat. No obvious hydroureter. Unremarkable bladder. GI tract: Mild mural thickening the distal descending and proximal sigmoid colon. No diverticulosis or significant pericolonic inflammation. No bowel obstruction. The appendix is not clearly visualized; however, there are no inflammatory changes in the right lower quadrant. Vasculature: Abdominal aorta is normal in caliber. Mesenteric arteries are patent. Lymph nodes: No lymphadenopathy. Peritoneum/Abdominal Wall: Unremarkable. No free air or significant free fluid. Pelvis: Unremarkable. Bones: Unremarkable for age. IMPRESSION: Mild mural thickening of the distal descending and proximal sigmoid colon. This nonspecific but could represent peristalsis or focal colitis (such as on the basis of an infectious or inflammatory process). No other evidence for an acute process within the abdomen and pelvis. Please note that all CT scans at this facility use dose modulation, iterative reconstruction, and/or weight-based dosing when appropriate to reduce radiation dose to as low as reasonably achievable. Dictated by Devante Madera MD @ 04/13/2023 1:55:25 AM (Electronically Signed)
[2023-04-13] MEDS: 0.9 % SODIUM CHLORIDE 1000 ml 1,000 ML IV (01:17)
--- NOTE | 2023-04-13 01:17 | ED_ITS ---
HPI - General Adult General Chief complaint: Unspecified Complaint, Adult Stated complaint: back surgery 1 wk ago Time Seen by Provider: 04/13/23 00:33 Source: patient Mode of arrival: ambulatory Limitations: no limitations History of Present Illness HPI narrative: 37-year-old female presents the emergency department with nonspecific symptoms. She reports that she is not having abdominal pain but she is feeling generally unwell. She has had nausea, vomiting and diarrhea for the past 3 days. The diarrhea has become bloody. Initially it started as an episode of blood-tinged vomit on Wednesday which is 2 days ago and now she reports that she has had several completely bloody stools. She seems odd April unfazed by the bloody stools part of it and is more concern with feeling generally unwell. Reports that she was seen by her surgical team on Wednesday which is 4 days ago. She underwent a micro diskectomy of the lower lumbar region on the which is 11 days ago. Reports that this was uncomplicated. She has been taking 300 of gabapentin and 5 mg of oxycodone 4 times daily since the surgery. She ran out of both medications, reports that these were refilled at her follow-up appointment. She picked up the oxycodone but states that she has not yet picked up the gabapentin. She wonders if her symptoms could be related to gabapentin withdrawal. Reports that she took her last dose on . States that she has been on the gabapentin since mid February, it is helpful for her pain. Denies other drug use or history of significant alcohol use. She does not take any anticoagulants because of a brain hemorrhage in her teens she reports. Does not use NSAIDs. Denies prior endoscopy. Feels shaky and unwell, she thinks that her symptoms may be from gabapentin withdrawal, has not tried picking up the gabapentin to take more of it to see if that would help with her symptoms. At 1 point in the interview, she tells me that she wants the cocktail that she gets for migraines when she comes here because she ?just wants to sleep?. And then tells me that it is IV fluids, Benadryl and other medications. I am quite familiar with this cocktail. I am more concerned about why she is having persistently bloody stools and she seems less concerned about this. No fever, no dysuria. She is status post hysterectomy. Denies prior history of C diff or inflammatory bowel disease Past medical history notable for anxiety, reports use of citalopram 10 mg daily. She is a smoker, denies alcohol. Pertinent surgical history for the micro diskectomy on the . I do not have those records. ROS is notable for generalized body aches, feeling generally unwell and the GI symptoms as above Related Data Home Medications Medication Instructions Recorded Confirmed citalopram 20 mg tablet 20 mg PO DAILY 02/15/23 04/13/23 gabapentin 100 mg capsule 100 mg PO 3XD 04/13/23 04/13/23 hydroxyzine HCl 25 mg tablet 25 - 50 mg PO Q6H PRN muscle spasm 04/13/23 04/13/23 oxycodone 5 mg tablet 5 mg PO DAILY 04/13/23 04/13/23 Previous Rx's Medication Instructions Recorded ketorolac 10 mg tablet 10 mg PO Q8H 5 days #15 tabs 02/15/23 ondansetron HCl 4 mg tablet 4 mg PO Q6H #10 tabs 02/15/23 ciprofloxacin HCl 500 mg tablet 500 mg PO BID #14 tabs 04/13/23 metronidazole 500 mg tablet 500 mg PO Q12H #14 tabs 04/13/23 Allergies Allergy/AdvReac Type Severity Reaction Status Date / Time amoxicillin Allergy Verified 04/13/23 00:35 clindamycin Allergy Verified 02/02/22 19:36 fentanyl Allergy Verified 02/02/22 19:36 midazolam [From Versed] Allergy Verified 02/02/22 19:36 PFSH PFS Social History Smoking Status: Current every day smoker What tobacco products do you use: cigarettes Smoking packs per day: 0.5 Smoking cigarettes per day: 10.0 Do you use any of these nicotine containing products: None Second hand tobacco smoke exposure: No How often do you have a drink containing alcohol: never How often do you have six or more drinks on one occasion: Never AUDIT-C Alcohol total score: 0 Non-prescribed substance use: denies use service: No Exam Const: Vital Signs, click to edit/add: Vital Signs - 24 hr 04/13/23 00:35 Temperature 98.2 F Pulse Rate [Pulse Oximeter] 72 Respiratory Rate 20 Blood Pressure [Ri ght Upper Arm] 152/95 H Pulse Oximetry 98 Oxygen Delivery Me thod Room Air Documenting provider has reviewed patient's vital signs: yes Common normals: alert Other: Anxious but answers questions appropriately with no signs of impairment. HENMT: Common normals: normocephalic Head and scalp: normocephalic Face and sinus: normal facial exam Mouth: oral and palatal mucosa normal Eye: Common normals: conjunctivae normal General eye: normal appearance of both eyes Conjunctiva: conjunctiva(e) normal Resp: Common normals: normal respiratory effort, no use of accessory muscles and clear to auscultation bilaterally Effort & inspection: able to speak in complete sentences Auscultation: clear to auscultation bilaterally Cardio: Common normals: regular rate, regular rhythm, S1 normal heart sound, S2 normal heart sound and no murmurs Rate: regular rate Rhythm: regular rhythm Heart sounds: S1 normal and S2 normal GI: Other: Bowel sounds are normoactive throughout. Surgical scarring consistent with prior laparoscopic procedures. Tender diffusely to palpation but certainly no rebound tenderness or guarding. Does concentrate a little more on the left side than the right. No mass, no hepatosplenomegaly Back & Pelvis: Other: Surgical scarring consistent with recent microdiskectomy. Incision looks great. No drainage, no surrounding redness, no tenderness. Neuro: Sensorium/orientation: alert Speech: speech normal Motor exam: no movement abnormalities noted Psych: Activity/motor behavior: appropriate eye contact Insight: insight good Judgement: judgment good Skin: Common normals: no rashes or lesions noted General skin exam: no rashes or lesions noted Course Course ED Course: Bloody diarrhea concerning. Differential diagnosis including colitis, volvulus, upper GI bleed, diverticular bleed, among others. Reports vomiting, dehydration. Will obtain typical basic GI labs. Start 1 L of normal saline and proton pump inhibitor. Recommend CT of the abdomen and pelvis, stool studies including fecal occult blood and culture. Reevaluation(s) Time of Reevaluation #1: 02:50 Reevaluation #1: Reviewed lab and CT findings with patient, consistent with colitis. There are no features of fever, tachycardia, leukocytosis or elevated inflammatory markers. Cannot tell this is viral versus bacterial. The bloody nature and recent hospitalization are more concerning for a bacterial infection. I do recommend starting ciprofloxacin and metronidazole, this will be started here. Prescription discussed. I would like her home for the next 3 days. I do not see any signs of an upper GI bleed, continuing on proton pump inhibitor therapy is not needed. She already does not take NSAIDs so those do not need to be held. She has prescriptions for oxycodone and gabapentin waiting to be picked up. I counseled her that it is okay to continue using those as needed for pain control. She reports feeling much better after the fluids, has just also been given some oxycodone and Vistaril for pain. We have reviewed the alarm symptoms that would warrant ED presentation. She has not been able to produce a stool sample while here. This is mostly reassuring for her condition but ty peter will not be diagnostic for us. She should follow up with primary care team in a few weeks to ensure that her symptoms have resolved and discuss whether not she should have an outpatient colonoscopy. Vital Signs Vital signs: Initial Vital Signs Temperature 98.2 F 04/13/23 00:35 Temperature Source Temporal Artery Scan 04/13/23 00:35 Pulse Rate 72 04/13/23 00:35 Pulse Strength 3+ Normal 04/13/23 00:35 Respiratory Rate 20 04/13/23 00:35 Blood Pressure 152/95 H 04/13/23 00:35 Blood Pressure Mean 114 H 04/13/23 00:35 Pulse Oximetry 98 04/13/23 00:35 Oxygen Delivery Method Room Air 04/13/23 00:35 Vital Signs Temperature 98.2 F 04/13/23 00:35 Pulse Rate 72 04/13/23 00:35 Respiratory Rate 20 04/13/23 00:35 Blood Pressure 152/95 H 04/13/23 00:35 Pulse Oximetry 98 04/13/23 00:35 Oxygen Delivery Method Room Air 04/13/23 00:35 Temperature 98.2 F 04/13/23 00:35 Pulse Rate 72 04/13/23 00:35 Respiratory Rate 20 04/13/23 00:35 Blood Pressure 152/95 H 04/13/23 00:35 Pulse Oximetry 98 04/13/23 00:35 Oxygen Delivery Method Room Air 04/13/23 00:35 Medications Administered Medications: Discontinued Medications Generic Name Dose Route Start Last Admin Trade Name Freq PRN Reason Stop Dose Admin Ciprofloxacin 500 mg 04/13/23 02:07 04/13/23 02:23 Ciprofloxacin 500 Mg Tablet PO 04/13/23 02:08 500 mg ONCE ONE Administration Hydroxyzine Pamoate 50 mg 04/13/23 02:07 04/13/23 02:23 Hydroxyzine Pamoate 25 Mg Capsule PO 04/13/23 02:08 50 mg ONCE ONE Administration Sodium Chloride 1,000 mls @ 1,000 mls/hr 04/13/23 01:03 04/13/23 02:13 0.9 % Sodium Chloride 1000 Ml IV 04/13/23 02:02 Infused .Q1H GABI Infusion Metronidazole 500 mg 04/13/23 02:09 04/13/23 02:24 Metronidazole 500 Mg Tablet PO 04/13/23 02:10 500 mg ONCE ONE Administration Ondansetron HCl 4 mg 04/13/23 02:07 04/13/23 02:23 Ondansetron Odt 4 Mg Tab PO 04/13/23 02:08 4 mg ONCE ONE Administration Oxycodone HCl 10 mg 04/13/23 02:07 04/13/23 02:24 Oxycodone 5 Mg Tablet PO 04/13/23 02:08 10 mg ONCE ONE Administration Pantoprazole Sodium 40 mg 04/13/23 01:03 04/13/23 01:18 Pantoprazole Sodium 40 Mg Inj IVP 04/13/23 01:04 40 mg ONCE ONE Administration Medical Decision Making Lab Data Lab results reviewed: Yes I reviewed the patient's lab results Lab results narrative: Inflammatory markers negative, no significant leukocytosis. Viral swabs are negative, all reassuring labs. No overt signs of dehydration or electrolyte abnormalities. Labs: Lab Results 04/13/23 Range/Units 01:15 WBC 10.47 (4.50-11.00) K/uL RBC 4.69 (4.00-5.20) m/uL Hgb 14.5 (12.0-16.0) gm/dL Hct 42.7 (33.0-51.0) % MCV 91 (80-100) fL MCH 31 (26-34) pg MCHC 34 (32-36) gm/dL RDW Coeff of Katiana 12.2 (11.5-15.5) % Plt Count 282 (140-440) K/uL Neut % (Auto) 62.0 (42.0-72.0) % Lymph % (Auto) 25.7 (20-44) % [place] % (Auto) 8.6 (0.0-11.0) % Eos % (Auto) 3.0 (0.0-7.0) % Baso % (Auto) 0.5 (0.0-3.0) % Neut # (Auto) 6.50 (1.7-7.0) K/uL Lymph # (Auto) 2.69 (0.90-2.90) K/uL [place] # (Auto) 0.90 (0.00-0.90) K/UL Eos # (Auto) 0.31 (0.00-0.50) K/uL Baso # (Auto) 0.05 (0.00-0.30) K/uL Abs Immat Gran (auto) 0.02 (0.00-0.30) K/uL Imm/Tot Granulo (auto) 0.2 % INR 0.92 (0.91-1.10) Sodium 137 (135-149) mmol/L Potassium 3.5 L (3.6-5.1) mmol/L Chloride 104 (96-114) mmol/L Carbon Dioxide 26 (20-32) mmol/L Anion Gap 7 (7-15) mEq/L BUN 13 (5-24) mg/dL Creatinine 0.7 (0.5-1.5) mg/dL Estimated Creat Clear 97.09 Estimated GFR 113 ml/min Glucose 99 (60-115) mg/dL Calcium 9.5 (8.4-10.6) mg/dL Total Bilirubin 0.3 (0.1-1.5) mg/dL AST 27 (12-35) U/L ALT 24 (4-35) U/L Alkaline Phosphatase 107 (40-150) U/L C-Reactive Protein < 0.5 L (0.5-1.0) mg/dL Total Protein 6.7 (6.0-8.3) g/dL Albumin 4.3 (3.3-5.0) g/dL SARS-CoV-2 (PCR) Negative SARS-CoV-2 (Negative) Influenza Type A (PCR) Negative PCR FLU A (Negative) Influenza Type B (PCR) Negative PCR FLU B (Negative) RSV (PCR) Negative PCR RSV (Negative) Imaging Data CT scan - pelvis: Attestation: I have reviewed the pertinent imaging results. My impression: Wall edema of the colon suspicious for colitis Radiologist's impression: IMPRESSION: Mild mural thickening of the distal descending and proximal sigmoid colon. This nonspecific but could represent peristalsis or focal colitis (such as on the basis of an infectious or inflammatory process). No other evidence for an acute process within the abdomen and pelvis. Please note that all CT scans at this facility use dose modulation, iterative reconstruction, and/or weight-based dosing when appropriate to reduce radiation dose to as low as reasonably achievable. Dictated by Devante Madera MD @ 04/13/2023 1:55:25 AM Discharge Plan Discharge Clinical Impression: Colitis presumed infectious Patient Disposition: Home w/ Parent or Adult Condition: Improved Instructions: Colitis (ED) Additional Instructions: As we discussed, your scan is consistent with colitis. This could be inflammatory or infectious. The overall pattern is most suggestive of infectious. It is impossible to tell whether this is bacterial or viral but based on your recent surgery, I have concerns for a bacterial infection. I have started you on ciprofloxacin and metronidazole, a combination of common antibiotics used for colitis. You will take your next dose this afternoon at around 3:00 p.m.. Your 3rd dose will be Wednesday morning. Do not drink alcohol on this medication. It may cause some nausea. You have assured me that you have a good supply of Zofran for this. If let me know that you already have a supply of oxycodone and gabapentin for pain control waiting for you at the pharmacy. Feel free to use these as prescribed. I do recommend Tylenol 1000 mg every 6 hours as the foundation for your pain management in building on top of that with her oxycodone and gabapentin as needed. Most are doing much better after 48 hours on antibiotics. I suspect you will be ready to return to work in 3 days. I have given you a note to reflect this. Drink lots of fluids, your appetite will gradually improve after a few days. If you are running very high fevers and have severe abdominal pain, you should come back to the emergency department. You should follow-up with her primary care doctor in a couple of weeks to make sure that all of your symptoms have resolved without complication and to see if you are having any residual symptoms that would warrant doing a colonoscopy. Activity Level: Activity as Tolerated Discharge Diet: Regular Prescriptions: New ciprofloxacin HCl 500 mg tablet 500 mg PO BID Qty: 14 0RF metronidazole 500 mg tablet 500 mg PO Q12H Qty: 14 0RF No Action hydroxyzine HCl 25 mg tablet 25 - 50 mg PO Q6H PRN (Reason: muscle spasm) gabapentin 100 mg capsule 100 mg PO 3XD oxycodone 5 mg tablet 5 mg PO DAILY citalopram 20 mg tablet 20 mg PO DAILY ondansetron HCl 4 mg tablet 4 mg PO Q6H Qty: 10 0RF ketorolac 10 mg tablet 10 mg PO Q8H 5 Days Qty: 15 0RF Follow Up/Referrals: Evon Lange MD [Primary Care Provider] - Stand Alone Forms: [facility] Info Instructions
[2023-04-13] MEDS: PANTOPRAZOLE SODIUM 40 MG INJ IVP (01:18)
[2023-04-13 01:26] LABS: Basophils Absolute Auto 0.05 K/uL (0.00-0.30); Basophils Percent Auto 0.5 % (0.0-3.0); Eosinophils Absolute Auto 0.31 K/uL (0.00-0.50); Hematocrit 42.7 % (33.0-51.0); Hemoglobin* 14.5 gm/dL (12.0-16.0); Immature Granulocytes Abs Auto 0.02 K/uL (0.00-0.30); Immature Granulocytes Pct Auto 0.2 %; Lymphocytes Absolute Auto 2.69 K/uL (0.90-2.90); Lymphocytes Percent Auto 25.7 % (20-44); Mean Corpuscular HGB Conc 34 gm/dL (32-36); Mean Corpuscular Hemoglobin 31 pg (26-34); Mean Corpuscular Volume 91 fL (80-100); Monocytes Percent Auto 8.6 % (0.0-11.0); Platelet Count* 282 K/uL (140-440); RDW Coefficient of Variation % 12.2 % (11.5-15.5); Red Blood Count 4.69 m/uL (4.00-5.20); White Blood Count* 10.47 K/uL (4.50-11.00)
[2023-04-13 01:30] LABS: Slide Review Reflex No
[2023-04-13 01:47] LABS: Albumin* 4.3 g/dL (3.3-5.0); Chloride* 104 mmol/L (96-114); Sodium* 137 mmol/L (135-149)
[2023-04-13 01:48] LABS: Potassium* 3.5 mmol/L (3.6-5.1)
[2023-04-13 01:49] LABS: INR 0.92 (0.91-1.10); Prothrombin Time 12.9 Seconds
[2023-04-13 01:50] LABS: Alanine Aminotransferase* 24 U/L (4-35); Alkaline Phosphatase* 107 U/L (40-150); Anion Gap 7 mEq/L (7-15); Aspartate Amino Transferase* 27 U/L (12-35); Bilirubin Total* 0.3 mg/dL (0.1-1.5); Carbon Dioxide* 26 mmol/L (20-32); Creatinine* 0.7 mg/dL (0.5-1.5); Est. Creatinine Clearance* 97.09; Estimated Glomerular Filt Rate 113 ml/min; Total Protein* 6.7 g/dL (6.0-8.3)
[2023-04-13 01:51] LABS: Blood Urea Nitrogen* 13 mg/dL (5-24); Calcium* 9.5 mg/dL (8.4-10.6); Glucose* 99 mg/dL (60-115)
[2023-04-13 01:54] LABS: C Reactive Protein* < 0.5 mg/dL (0.5-1.0)
[2023-04-13 02:01] LABS: PCR FLU A Negative PCR FLU A (Negative); PCR FLU B Negative PCR FLU B (Negative); PCR RSV Negative PCR RSV (Negative)
[2023-04-13 02:02] LABS: SARS PCR* Negative SARS-CoV-2 (Negative)
[2023-04-13] MEDS: CIPROFLOXACIN 500 MG TABLET PO (02:23)
[2023-04-13] MEDS: hydrOXYzine pamoate 25 MG CAPSULE 50 MG PO (02:23)
[2023-04-13] MEDS: ONDANSETRON ODT 4 MG TAB PO (02:23)
[2023-04-13] MEDS: OXYCODONE 5 MG TABLET 10 MG PO (02:24)
[2023-04-13] MEDS: metroNIDAZOLE 500 MG TABLET PO (02:24)
== END 2023-04-13 03:14 | disposition home or self-care (01) ==
PROVIDERS: Emergency Provider Family Medicine; PCP Family Medicine
DX: K52.9 Noninfective gastroenteritis and colitis, unspecified (principal)
CPT/HCPCS: 36415; 74177; 80053; 82270; 85025; 85610; 86140; 87493; 87631; 95992; 96374; 99283; 99284; A9270; C9113; J7030; Q9967

== ENCOUNTER 2023-04-29 17:23 | Emergency (ER) | payer BC, OTHER, SELFPAY ==
[2023-04-29 17:54] VITALS: BP 153/101; PULSE 96; RESP 22; TEMP 36.7; O2SAT 98; BMI 20.2
[2023-04-29 19:50] VITALS: BP 145/84; PULSE 61; RESP 18; TEMP 36.7; O2SAT 98
--- NOTE | 2023-04-29 20:16 | ED.GENADULT ---
HPI - General Adult General Chief complaint: Unspecified Complaint, Adult Stated complaint: high blood pressure 172/109 Time Seen by Provider: 04/29/23 19:41 History of Present Illness HPI narrative: This 37-year-old female comes in reporting lots of anxiety and insomnia and is also concerned about her blood pressure. She states that she has been going through a divorce in the past year and has had other circumstances at have been difficult including recently a friend of hers who committed suicide. She states that she is not sleeping well and was told by somebody that she was going to have a stroke because her blood pressure was elevated. She has measured her blood pressure at home and sometimes it is around the 150-170 range for systolic value. Her initial pressure here was 153 and after recheck was 141 at the time of my visit. Related Data Home Medications Medication Instructions Recorded Confirmed citalopram 20 mg tablet 20 mg PO DAILY 02/15/23 04/13/23 gabapentin 100 mg capsule 100 mg PO 3XD 04/13/23 04/13/23 hydroxyzine HCl 25 mg tablet 25 - 50 mg PO Q6H PRN muscle spasm 04/13/23 04/13/23 oxycodone 5 mg tablet 5 mg PO DAILY 04/13/23 04/13/23 Previous Rx's Medication Instructions Recorded ketorolac 10 mg tablet 10 mg PO Q8H 5 days #15 tabs 02/15/23 ondansetron HCl 4 mg tablet 4 mg PO Q6H #10 tabs 02/15/23 ciprofloxacin HCl 500 mg tablet 500 mg PO BID #14 tabs 04/13/23 metronidazole 500 mg tablet 500 mg PO Q12H #14 tabs 04/13/23 escitalopram oxalate 10 mg tablet 10 mg PO DAILY #30 tabs 04/29/23 (Lexapro) lorazepam 0.5 mg tablet (Ativan) 0.5 mg PO BID-TID PRN #14 tabs 04/29/23 Allergies Allergy/AdvReac Type Severity Reaction Status Date / Time amoxicillin Allergy Verified 04/29/23 17:58 clindamycin Allergy Verified 04/29/23 17:58 fentanyl Allergy Verified 04/29/23 17:58 midazolam [From Versed] Allergy Verified 04/29/23 17:58 Review of Systems Status of ROS: Reports: 10 or more systems reviewed and unremarkable except as noted in History and below Narrative: Constitutional: No fevers, no weight gain or loss. Eyes: No discharge. No vision changes. HENT: No congestion, no sore throat, no ear pain. Cardiovascular: No chest pain, no palpitations. Respiratory: No shortness of breath, no wheezes, no cough. Gastrointestinal: No abdominal pain, no vomiting, no diarrhea. Genitourinary: No dysuria, no hematuria. Musculoskeletal: Normal range of motion. Skin: No rashes, no pruritis. Neurological: No dizziness, weakness, sensory change, speech change. Endo/Heme/Allergies: No bruising or bleeding. No polydipsia. Pysch: no suicidality. Anxiety and insomnia. All other systems reviewed and are negative. [facility] Social History Smoking Status: Current every day smoker What tobacco products do you use: cigarettes Smoking packs per day: 0.5 Smoking cigarettes per day: 10.0 Do you use any of these nicotine containing products: None Second hand tobacco smoke exposure: No How often do you have a drink containing alcohol: never How often do you have six or more drinks on one occasion: Never AUDIT-C Alcohol total score: 0 Non-prescribed substance use: denies use service: No Exam Narrative: Exam Narrative: Constitutional: Well-developed, well-nourished, no acute distress. HEENT: Normocephalic, atraumatic. Neck: Normal range of motion. Nontender. Supple. Heart: Intact distal pulses. Lungs: No chest discomfort. No wheezes, rhonchi, or rales. Abdomen: Nontender. Back: Normal range of motion. Extremities: Normal range of motion. No injury. Skin: Intact. No rash. Warm. No erythema or pallor. Neurologic: No altered sensation. No weakness. Alert and oriented. Psychiatric: No suicidality. No anxiety or depression. No insomnia. Nursing notes and vitals signs are reviewed. Const: Vital Signs, click to edit/add: Vital Signs - 24 hr 04/29/23 17:54 04/29/23 19:50 Temperature 98.1 F 98.0 F Pulse Rate [Right Pulse Oximeter] 96 61 Respiratory Rate 22 18 Blood Pressure [Ri ght Upper Arm] 153/101 H 145/84 H Pulse Oximetry 98 98 Oxygen Delivery Me thod Room Air Room Air Course Vital Signs Vital signs: Initial Vital Signs Temperature 98.1 F 04/29/23 17:54 Temperature Source Temporal Artery Scan 04/29/23 17:54 Pulse Rate 96 04/29/23 17:54 Pulse Rhythm Regular 04/29/23 17:54 Pulse Strength 3+ Normal 04/29/23 17:54 Respiratory Rate 22 04/29/23 17:54 Blood Pressure 153/101 H 04/29/23 17:54 Blood Pressure Mean 118 H 04/29/23 17:54 Blood Pressure Position Sitting 04/29/23 17:54 Pulse Oximetry 98 04/29/23 17:54 Oxygen Delivery Method Room Air 04/29/23 17:54 Vital Signs Temperature 98.1 F 04/29/23 17:54 Pulse Rate 96 04/29/23 17:54 Respiratory Rate 22 04/29/23 17:54 Blood Pressure 153/101 H 04/29/23 17:54 Pulse Oximetry 98 04/29/23 17:54 Oxygen Delivery Method Room Air 04/29/23 17:54 Temperature 98.0 F 04/29/23 19:50 Pulse Rate 61 04/29/23 19:50 Respiratory Rate 18 04/29/23 19:50 Blood Pressure 145/84 H 04/29/23 19:50 Pulse Oximetry 98 04/29/23 19:50 Oxygen Delivery Method Room Air 04/29/23 19:50 Medical Decision Making MDM Narrative Medical decision making narrative: This patient comes in with concern about her blood pressure and reports lots of anxiety and insomnia symptoms. I did describe criteria for establishing a diagnosis of high blood pressure that needs treatment. She states her normal blood pressure is is a systolic value of around 90. I reassured her that her blood pressure is often a reaction to how she is feeling and this does not pose a risk for stroke or heart disease unless blood pressure remains elevated over good amount of time when feeling normal. I explained that blood pressure many times will react to our person is feeling and be elevated. The patient is taking hydroxyzine but states that this does not help with anxiety or insomnia. She did receive a oral dose of Ativan 1 mg here. I stated that this medicine works nicely for anxiety but is not a good long-term plan as it can become addictive. I did provide prescription for more tablets of Ativan 0.5 mg and a prescription for Lexapro. The patient does have a follow-up appointment with her primary physician in about 3 weeks. She does not endorse any suicidality. She is reassured with regard to blood pressure and with regard to the hope of improvement with these prescribed medicines. Discharge Plan Discharge Patient Disposition: Home, Self-Care Additional Instructions: Take medications as needed and directed. Follow up with MD in 3 weeks as scheduled. Return not improving or worsening. Prescriptions: New lorazepam [Ativan] 0.5 mg tablet 0.5 mg PO BID-TID PRNQty: 14 0RF escitalopram oxalate [Lexapro] 10 mg tablet 10 mg PO DAILY Qty: 30 2RF No Action hydroxyzine HCl 25 mg tablet 25 - 50 mg PO Q6H PRN (Reason: muscle spasm) gabapentin 100 mg capsule 100 mg PO 3XD oxycodone 5 mg tablet 5 mg PO DAILY ciprofloxacin HCl 500 mg tablet 500 mg PO BID Qty: 14 0RF metronidazole 500 mg tablet 500 mg PO Q12H Qty: 14 0RF citalopram 20 mg tablet 20 mg PO DAILY ondansetron HCl 4 mg tablet 4 mg PO Q6H Qty: 10 0RF ketorolac 10 mg tablet 10 mg PO Q8H 5 Days Qty: 15 0RF Follow Up/Referrals: Evon Lange MD [Primary Care Provider] - Stand Alone Forms: [employer] Info Instructions
[2023-04-29] MEDS: LORazepam 1 MG TABLET PO (20:19)
== END 2023-04-29 20:27 | disposition home or self-care (01) ==
PROVIDERS: Emergency Provider Emergency Medicine Emergency Medical Services; PCP Family Medicine
DX: F41.9 Anxiety disorder, unspecified (principal); G47.00 Insomnia, unspecified
CPT/HCPCS: 99283; 99284; A9270

== ENCOUNTER 2023-12-09 11:00 | Emergency (ER) | payer OTHER, SELFPAY ==
[2023-12-09 11:05] VITALS: BP 187/62; PULSE 64; RESP 18; TEMP 36.4; O2SAT 97; BMI 18.3
--- NOTE | 2023-12-09 11:24 | ED.GENADULT ---
HPI - General Adult General Date Seen: 12/09/23 Chief complaint: Headache/Migraine Stated complaint: Headache, thinks shingles Time Seen by Provider: 12/09/23 11:14 History of Present Illness HPI narrative: 38-year-old female with a past medical history of anxiety, tobacco use, history of chickenpox as a child, occasional cold sores, recent coronavirus, presenting to the ER today with a couple of concerns. She develops symptoms of fever and chills and body aches with the T10 days ago on 11/28. She tested positive for COVID at that work and had 5 days off of work so she can quarantine. Her boyfriend had bed positive for COVID on the week prior. Symptoms included fatigue, shakiness, nausea, cough, URI symptoms, diarrhea. Generalized weakness and fatigue. Unfortunately her grandmother, who lived in [place], became very ill this weekend. She had did travel by plane to [place] on Wednesday, 12/03. She wore a mask and did her best to avoid being contagious to others on the plane or to her family members in [place]. While in [place] she developed a bad headache located in the left occipital region of her head. It hurts when she turns her neck side to side but she is not having neck stiffness. She says there is 1 particular spot at the base of the left skull that might be a swollen lymph node. She has not had any other rashes there. She has been nauseous. She had some vomiting over the weekend with small flecks of blood. No visual disturbance with headache other than photophobia. It is not getting better. She also noticed, this weekend, that she developed a itchy/burning/vesicular rash in her left groin and left anteromedial thigh. She is concerned it might be shingles. She has been applying calamine lotion. All the blisters have broken open and now scabbed are dry. No other surrounding erythema. She has had malaise and fatigue lax wheeze from the COVID but no other new fever or chills. No swelling in her leg. For the past several days, she has been nauseous but not vomiting. Related Data Home Medications ?Medication ?Instructions ?Recorded ?Confirmed citalopram 20 mg tablet 20 mg PO DAILY 02/15/23 12/09/23 oxycodone 5 mg tablet 5 mg PO DAILY 04/13/23 12/09/23 Previous Rx's ?Medication ?Instructions ?Recorded hydrocodone 5 mg-acetaminophen 325 1 tab PO Q4-6H PRN pain #10 tabs 12/09/23 mg tablet valacyclovir 1 gram tablet 1,000 mg PO TID #21 tabs 12/09/23 Allergies Allergy/AdvReac Type Severity Reaction Status Date / Time amoxicillin Allergy Verified 04/29/23 17:58 clindamycin Allergy Verified 04/29/23 17:58 fentanyl Allergy Verified 04/29/23 17:58 midazolam [From Versed] Allergy Verified 04/29/23 17:58 [facility] Social History Smoking Status: Current every day smoker What tobacco products do you use: cigarettes Smoking packs per day: 0.5 Smoking cigarettes per day: 10.0 Do you use any of these nicotine containing products: None Second hand tobacco smoke exposure: No How often do you have a drink containing alcohol: never How often do you have six or more drinks on one occasion: Never AUDIT-C Alcohol total score: 0 Non-prescribed substance use: marijuana (any form) service: No Exam Narrative: Exam Narrative: Constitutional: Appears well-developed and well-nourished. Alert. Conversant. Looks rundown and tired, but overall Non toxic. She is conversant. HENT: Head: Atraumatic. When I palpate the back of her head where she feels lump I cannot really appreciate any definite lump. I do not feel any other occipital, preauricular or postauricular lymph nodes, no anterior posterior of occult lymph nodes. No supraclavicular nodes. Nose: Nose normal. Mouth/Throat: Oral mucosa is clear and moist. no trismus. Pharynx normal. Tonsils symmetric. No tonsillar enlargement, erythema, or exudate. Eyes: Conjunctivae normal. EOM normal. Pupils equal, round, and reactive to light. No scleral icterus. Neck: Normal range of motion. Neck supple. No tracheal deviation present. Cardiovascular: Normal rate, regular rhythm. No gallop. No friction rub. No murmur heard. Symmetric radial artery pulses Pulmonary/Chest: Effort normal. No stridor. No respiratory distress. No wheezes. No rales. No rhonchi . No tenderness. Abdominal: Soft.No distension. No mass. No tenderness. No rebound. No guarding. Musculoskeletal: RUE: Normal range of motion. No tenderness. No deformity LUE: Normal range of motion. No tenderness. No deformity RLE: Normal range of motion. No edema. No tenderness. No deformity LLE: Normal range of motion. No edema. No tenderness. No deformity Lymph: No cervical adenopathy. I do not feel any other occipital, preauricular or postauricular lymph nodes, no anterior posterior of occult lymph nodes. No supraclavicular nodes. Neurological: Mental status normal. Attention normal. Alert and oriented x3. GCS 15. Memory normal. Speech fluent. Cognition normal. Cranial Nerves intact II-XII except I did not formally test gag or visual acuity. EOMI. Palate elevates symmetrically and tongue protrudes in the midline. Strength: 5/5 trapezius on the right and left 5/5 deltoid on the right and left 5/5 biceps on the right and left 5/5 triceps on the right and left 5/5 general ledger accountant on the right and left 5/5 thumb opposition on the right and left 5/5 finger abduction on the right and left 5/5 hip flexors (L3) on the right and left 5/5 quadriceps (L4) on the right and left 5/5 tibialis anterior on the right and left 5/5 EHL (L5) on the right and left 5/5 gastrocnemius (S1) on the right and left 5/5 hamstring on the right and left Sensation intact to light touch in both upper extremities (C4-T1) Sensation intact to light touch in Both lower extremities (L4-S1). Finger to nose and coordination normal. Skin: Skin is warm and dry. She has a scabbed/dry rash that appears to be healed vesicles on her left medial thigh just below her groin crease and on the medial thigh. Suspicious for shingles in her left L2 dermatome. No rash on her low back or buttock. Palms are pink. No pallor. Normal capillary refill. Psychiatric: Normal mood. Normal affect. Const: Vital Signs, click to edit/add: Vital Signs - 24 hr 12/09/23 11:05 Temperature 97.5 F L Pulse Rate [Right Pulse Oximeter] 64 Respiratory Rate 18 Blood Pressure [Ri ght Upper Arm] 187/62 H Pulse Oximetry 97 Oxygen Delivery Me thod Room Air Course Vital Signs Vital signs: Initial Vital Signs Temperature 97.5 F L 12/09/23 11:05 Temperature Source Temporal Artery Scan 12/09/23 11:05 Pulse Rate 64 12/09/23 11:05 Respiratory Rate 18 12/09/23 11:05 Blood Pressure 187/62 H 12/09/23 11:05 Blood Pressure Mean 103 12/09/23 11:05 Blood Pressure Position Sitting 12/09/23 11:05 Pulse Oximetry 97 12/09/23 11:05 Oxygen Delivery Method Room Air 12/09/23 11:05 Vital Signs Temperature 97.5 F L 12/09/23 11:05 Pulse Rate 64 12/09/23 11:05 Respiratory Rate 18 12/09/23 11:05 Blood Pressure 187/62 H 12/09/23 11:05 Pulse Oximetry 97 12/09/23 11:05 Oxygen Delivery Method Room Air 12/09/23 11:05 Temperature 97.5 F L 12/09/23 11:05 Pulse Rate 64 12/09/23 11:05 Respiratory Rate 18 12/09/23 11:05 Blood Pressure 187/62 H 12/09/23 11:05 Pulse Oximetry 97 12/09/23 11:05 Oxygen Delivery Method Room Air 12/09/23 11:05 Medications Administered Medications: Discontinued Medications Generic Name Dose Route Start Last Admin Trade Name Freq PRN Reason Stop Dose Admin Diphenhydramine HCl 12.5 mg 12/09/23 11:48 12/09/23 12:32 Diphenhydramine 50 Mg/Ml Inj IVP 12/09/23 11:49 12.5 mg ONCE ONE Administration Sodium Chloride 1,000 mls @ 1,000 mls/hr 12/09/23 12:00 12/09/23 13:20 0.9 % Sodium Chloride 1000 Ml IV 12/09/23 12:59 Infused .Q1H GABI Infusion Ketorolac Tromethamine 15 mg 12/09/23 11:48 12/09/23 12:32 Ketorolac 15 Mg/Ml Inj IVP 12/09/23 11:49 15 mg ONCE ONE Administration Metoclopramide HCl 10 mg 12/09/23 11:48 12/09/23 12:32 Metoclopramide Hcl 5 Mg/Ml Inj IVP 12/09/23 11:49 10 mg ONCE ONE Administration Medical Decision Making MDM Narrative Medical decision making narrative: Pleasant 38-year-old female presenting to the ER today with concerns about bad left occipital headache, left-sided neck pain also a vesicular rash on her left medial proximal thigh. In terms of the headache, it began without abrupt onset several days ago while she was recovering from COVID. 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 This would raise concern for possible vascular cause for her headache. Head CT and CT angiogram obtained and are negative. No evidence for dural sinus thrombosis. The she does not have any neck stiffness nor does she have any fever. Clinically well-appearing. I do not think she has bacterial meningitis. At this point would hold off on lumbar puncture. She had some improvement with migraine cocktail here in the ER. Still having some headache pain. Discussed options for further treatment. She would prefer not to have any other meds here in the ER but does request meds for discharge within the is reasonable. Prescription for Page. Opiate precautions reviewed. Laboratory workup is reassuring. The rash on her left medial thigh is consistent clinically with herpes zoster. Will start valacyclovir for this and pain medicine as noted above. No signs at this point of disseminated zoster nor V1/eye involvement. Patient is [] immunocompromised and I see no signs of systemic illness that might have lead to this. I don't think lab work to look for things like HIV or leukemia is indicated. See primary care doctor in follow up for recheck and refill of pain medicine if needed. Prescription for valacyclovir provided. Lab Data Labs: Lab Results 12/09/23 Range/Units 12:00 WBC 6.36 (4.50-11.00) K/uL RBC 4.60 (4.00-5.20) m/uL Hgb 14.3 (12.0-16.0) gm/dL Hct 43.6 (33.0-51.0) % MCV 95 (80-100) fL MCH 31 (26-34) pg MCHC 33 (32-36) gm/dL RDW Coeff of Katiana 13.1 (11.5-15.5) % Plt Count 176 (140-440) K/uL Neut % (Auto) 62.8 (42.0-72.0) % Lymph % (Auto) 25.9 (20-44) % [place] % (Auto) 9.6 (0.0-11.0) % Eos % (Auto) 1.3 (0.0-7.0) % Baso % (Auto) 0.2 (0.0-3.0) % Neut # (Auto) 4.00 (1.7-7.0) K/uL Lymph # (Auto) 1.65 (0.90-2.90) K/uL [place] # (Auto) 0.60 (0.00-0.90) K/UL Eos # (Auto) 0.08 (0.00-0.50) K/uL Baso # (Auto) 0.01 (0.00-0.30) K/uL Abs Immat Gran (auto) 0.01 (0.00-0.30) K/uL Imm/Tot Granulo (auto) 0.2 % Sodium 136 (135-149) mmol/L Potassium 3.5 L (3.6-5.1) mmol/L Chloride 105 (96-114) mmol/L Carbon Dioxide 28 (20-32) mmol/L Anion Gap 3 L (7-15) mEq/L BUN 15 (5-24) mg/dL Creatinine 0.5 (0.5-1.5) mg/dL Estimated Creat Clear 117.81 Estimated GFR 122 ml/min Glucose 93 (60-115) mg/dL Calcium 9.5 (8.4-10.6) mg/dL HCG, Qual Negative (Negative) Imaging Data CT scan - head: Radiologist's impression: IMPRESSION: 1. No radiographic evidence of acute intracranial abnormalities. 2. Small focus of calcification in the left middle temporal gyrus is nonspecific, but can be seen in the setting prior granulomatous disease, or could potentially be related to the reported prior AVM. CTA Head and Neck: Attestation: I have reviewed the pertinent imaging results. Radiologist's impression: IMPRESSION: CTA head: No sign of occlusion or significant aneurysm. No large AVM is identified. The non-dominant right vertebral artery likely terminates in PICA. No evidence of dural venous thrombosis. The left transverse sinus is primarily supplied by the vein of Sam, a normal anatomic variant. CTA neck: No sign of dissection or significant stenosis. Along the posterosuperior margin of the left thyroid gland centered at the level of the tracheoesophageal groove, there is an focus with slightly different enhancement characteristics relative to the thyroid parenchyma that measures 1.4 centimeters in craniocaudal extent (), while indeterminate. This could reflect a parathyroid adenoma. Consider correlation with laboratory studies. Dictated by Omer Lowe MD @ 12/09/2023 12:33:49 PM Discharge Plan Discharge Clinical Impression: Headache, Shingles, Parathyroid adenoma Patient Disposition: Home, Self-Care Condition: Stable Instructions: Shingles (ED), Acute Headache (DC) Additional Instructions: As we discussed, please come back to the ER right away if you have worsening or uncontrolled headache, worsening nausea or vomiting, blurriness or trouble with her vision, any fever or neck stiffness, or any problems. Use the valacyclovir to treat this shingles on your leg. Incidentally, the scan of your brain today shows a small nodule in your left parathyroid gland. The radiologist believes this is a benign condition called a parathyroid adenoma. It is not dangerous. Sometimes it can affect the function of your parathyroid gland. Please follow-up with your regular doctor within 1-2 weeks so that they can arrange follow-up blood testing. Prescriptions: New valacyclovir 1 gram tablet 1,000 mg PO TID Qty: 21 0RF hydrocodone-acetaminophen 5-325 mg tablet 1 tab PO Q4-6H PRN (Reason: pain) Qty: 10 0RF No Action oxycodone 5 mg tablet 5 mg PO DAILY citalopram 20 mg tablet 20 mg PO DAILY Follow Up/Referrals: Evon Lange MD [Primary Care Provider] - Stand Alone Forms: [facility] Info Instructions
--- NOTE | 2023-12-09 11:46 | CRLHL7_ITS ---
For Patients: As a result of the Century Cures Act, medical imaging exams and procedure reports are released immediately into your electronic medical record. You may view this report before your referring provider. If you have questions, please contact your health care provider. DATE: 12/09/2023 CLINICAL HISTORY: Patient with headache, history of AVM. TECHNIQUE: Standard helical CT image acquisition through the intracranial circulation following intravenous administration of contrast material with bolus tracking. 2D and 3D MIP images for post-processing were performed and interpreted on an independent workstation and 3D images were permanently archived. COMPARISON: CT same day. FINDINGS: There is no cerebral aneurysm or large vessel occlusion. The right internal carotid artery is normal. The right middle cerebral artery and its branches are normal. The right anterior cerebral artery and its branches are normal. The left internal carotid artery is normal. The left middle cerebral artery and its branches are normal. The left anterior cerebral artery and its branches are normal. The anterior communicating artery is well visualized and appears normal. The right vertebral artery and PICA are normal. The left vertebral artery and PICA are normal. The left vertebral artery is dominant. The basilar artery is patent and appears normal. The right posterior cerebral artery is normal. The left posterior cerebral artery is normal. The visualized venous structures are patent. IMPRESSION: Patent proximal intracranial vasculature without intracranial aneurysms or CTA evidence of arteriovenous malformation. However, CTA is not sensitive for the detection of small arteriovenous malformations. Please note that all CT scans at this facility use dose modulation, iterative reconstruction, and/or weight-based dosing when appropriate to reduce radiation dose to as low as reasonably achievable. Dictated by Javier Quick MD @ 12/09/2023 2:05:45 PM (Electronically Signed)
--- NOTE | 2023-12-09 11:46 | CRLHL7_ITS ---
For Patients: As a result of the Century Cures Act, medical imaging exams and procedure reports are released immediately into your electronic medical record. You may view this report before your referring provider. If you have questions, please contact your health care provider. DATE: 12/09/2023 CLINICAL HISTORY: Patient with headache and neck pain. TECHNIQUE: Standard helical CT image acquisition of the neck up to the skull base after bolus intravenous contrast enhancement. 2D and 3D MIP images for post-processing were performed and interpreted on an independent workstation and 3D images were permanently archived. COMPARISON: CT same day. FINDINGS: The origins of the great vessels from the aortic arch are patent. The origin of the right vertebral artery is patent. The origin of the left vertebral artery is patent. The common carotid arteries are patent. There is no stenosis at the origin of the right internal carotid artery. There is no stenosis at the origin of the left internal carotid artery. The rest of the cervical segments of the internal carotid arteries are patent up to the skull base. The left vertebral artery is dominant. The cervical segments of the vertebral arteries are patent up to the skull base. The visualized lung apices are unremarkable. The thyroid gland demonstrates a 9mm nodule posterior to its left lobe. The soft tissues of the neck are unremarkable. There are degenerative changes in the cervical spine. IMPRESSION: 1. Patent cervical vasculature. 2. 9mm nodule posterior to the left thyroid lobe may be an adenoma. Further evaluation with ultrasound is recommended. Please note that all CT scans at this facility use dose modulation, iterative reconstruction, and/or weight-based dosing when appropriate to reduce radiation dose to as low as reasonably achievable. Dictated by Javier Quick MD @ 12/09/2023 2:03:43 PM (Electronically Signed)
--- NOTE | 2023-12-09 11:47 | CRLHL7_ITS ---
For Patients: As a result of the Century Cures Act, medical imaging exams and procedure reports are released immediately into your electronic medical record. You may view this report before your referring provider. If you have questions, please contact your health care provider. INDICATION: HEADACHE, NECK PAIN, H/O AVM, RECENT COVID. TECHNIQUE: Non-contrast CT of the head is submitted. No comparisons. FINDINGS: The ventricles, sulci and gyri are of normal size, shape and contour. Midline structures are centrally located. No convincing evidence of intra- or extra-axial fluid collections. Small focus of calcification in the left middle temporal gyrus nodular calcifications in the left parotid gland likely reflect sialoliths. IMPRESSION: 1. No radiographic evidence of acute intracranial abnormalities. 2. Small focus of calcification in the left middle temporal gyrus is nonspecific, but can be seen in the setting prior granulomatous disease, or could potentially be related to the reported prior AVM. Please note that all CT scans at this facility use dose modulation, iterative reconstruction, and/or weight-based dosing when appropriate to reduce radiation dose to as low as reasonably achievable. Dictated by Omer Lowe MD @ 12/09/2023 12:22:14 PM (Electronically Signed)
[2023-12-09 12:17] LABS: Basophils Absolute Auto 0.01 K/uL (0.00-0.30); Basophils Percent Auto 0.2 % (0.0-3.0); Eosinophils Absolute Auto 0.08 K/uL (0.00-0.50); Eosinophils Percent Auto 1.3 % (0.0-7.0); Hematocrit 43.6 % (33.0-51.0); Hemoglobin* 14.3 gm/dL (12.0-16.0); Immature Granulocytes Abs Auto 0.01 K/uL (0.00-0.30); Immature Granulocytes Pct Auto 0.2 %; Lymphocytes Absolute Auto 1.65 K/uL (0.90-2.90); Lymphocytes Percent Auto 25.9 % (20-44); Mean Corpuscular HGB Conc 33 gm/dL (32-36); Mean Corpuscular Hemoglobin 31 pg (26-34); Mean Corpuscular Volume 95 fL (80-100); Monocytes Percent Auto 9.6 % (0.0-11.0); Neutrophils Percent Auto 62.8 % (42.0-72.0); Platelet Count* 176 K/uL (140-440); RDW Coefficient of Variation % 13.1 % (11.5-15.5); White Blood Count* 6.36 K/uL (4.50-11.00)
[2023-12-09 12:31] LABS: Chloride* 105 mmol/L (96-114); Potassium* 3.5 mmol/L (3.6-5.1); Sodium* 136 mmol/L (135-149)
[2023-12-09] MEDS: 0.9 % SODIUM CHLORIDE 1000 ml 1,000 ML IV (12:31)
[2023-12-09] MEDS: KETOROLAC 15 MG/ML inj IVP (12:32)
[2023-12-09] MEDS: diphenhydrAMINE 50 MG/ML inj 12.5 MG IVP (12:32)
[2023-12-09] MEDS: METOCLOPRAMIDE HCL 5 MG/ML INJ 10 MG IVP (12:32)
[2023-12-09 12:34] LABS: Anion Gap 3 mEq/L (7-15); Carbon Dioxide* 28 mmol/L (20-32); Creatinine* 0.5 mg/dL (0.5-1.5); Est. Creatinine Clearance* 117.81; Estimated Glomerular Filt Rate 122 ml/min
[2023-12-09 12:35] LABS: Blood Urea Nitrogen* 15 mg/dL (5-24); Calcium* 9.5 mg/dL (8.4-10.6); Glucose* 93 mg/dL (60-115)
[2023-12-09 12:36] LABS: Slide Review Reflex No
[2023-12-09 12:49] LABS: HCG Qualitative Serum* Negative (Negative)
== END 2023-12-09 13:50 | disposition home or self-care (01) ==
PROVIDERS: Emergency Provider Emergency Medicine; PCP Family Medicine
DX: R51.9 Headache, unspecified (principal); B02.9 Zoster without complications; D35.1 Benign neoplasm of parathyroid gland
CPT/HCPCS: 36415; 70450; 70496; 70498; 80048; 84703; 85025; 96374; 96375; 99284; J1200; J1885; J2765; J7030; Q9967

== ENCOUNTER 2023-12-17 10:46 | Emergency (ER) | payer OTHER, SELFPAY ==
[2023-12-17 11:02] VITALS: BP 167/100; PULSE 82; RESP 16; TEMP 36.9; O2SAT 97; BMI 19.1
[2023-12-17] MEDS: MORPHINE 4 MG/ML INJ IM (13:28)
[2023-12-17] MEDS: diphenhydrAMINE 50 MG/ML inj 25 MG IVP (13:28)
[2023-12-17] MEDS: METOCLOPRAMIDE HCL 5 MG/ML INJ 10 MG IVP (13:28)
[2023-12-17] MEDS: KETOROLAC 15 MG/ML inj IVP (13:28)
--- NOTE | 2023-12-17 13:42 | ED.HA ---
HPI - Headache General Chief Complaint: Headache/Migraine Stated Complaint: headache /shingles Time Seen by Provider: 12/17/23 12:26 Source: patient Mode of arrival: ambulatory Limitations: no limitations History of Present Illness HPI Narrative: Patient is a 38-year-old female presenting to the emergency department for headache. This headache started 2 weeks ago when she was diagnosed with COVID. That time she was also traveling to [place] to be with her dying grandmother who she was extremely close with. Her grandmother then and it negatively affected her quite a bit she states she became very stressed out. She then developed a rash on her leg that was diagnosed as shingles. She came to this emergency department on 12/09/[address] and CTA was done showing no acute abnormalities. She was given the migraine cocktail at that time without any improvement and she was discharged with Percocet and valacyclovir for her headache and shingles. Headache is not improved at all in that time frame and she went to her primary care appointment today and was told to come to the emergency department for possible treatment. She has headaches in the past but they have never been this bad. She has required ketamine for headaches previously but she states she does not like the sensation she gets from ketamine. Feels lightheaded and dizzy this morning but has since resolved. Denies fevers, chills, chest pain, shortness of breath, abdominal pain, diarrhea, constipation, dysuria. The headache starts in the back left paraspinal muscles of her neck and comes in to her left forehead. She states the pain is worse in her left forehead. Related Data Home Medications ?Medication ?Instructions ?Recorded ?Confirmed citalopram 20 mg tablet 20 mg PO DAILY 02/15/23 12/09/23 oxycodone 5 mg tablet 5 mg PO DAILY 04/13/23 12/09/23 Previous Rx's ?Medication ?Instructions ?Recorded hydrocodone 5 mg-acetaminophen 325 1 tab PO Q4-6H PRN pain #10 tabs 12/09/23 mg tablet valacyclovir 1 gram tablet 1,000 mg PO TID #21 tabs 12/09/23 methocarbamol 750 mg tablet 1,500 mg (2 x 750 mg) PO TID 5 12/17/23 days #30 tabs Allergies Allergy/AdvReac Type Severity Reaction Status Date / Time amoxicillin Allergy Verified 04/29/23 17:58 clindamycin Allergy Verified 04/29/23 17:58 fentanyl Allergy Verified 04/29/23 17:58 midazolam [From Versed] Allergy Verified 04/29/23 17:58 Review of Systems Status of ROS: Reports: 10 or more systems reviewed and unremarkable except as noted in History and below [facility] Social History Smoking Status: Current every day smoker What tobacco products do you use: cigarettes Smoking packs per day: 0.5 Smoking cigarettes per day: 10.0 Do you use any of these nicotine containing products: None Second hand tobacco smoke exposure: No How often do you have a drink containing alcohol: never How often do you have six or more drinks on one occasion: Never AUDIT-C Alcohol total score: 0 Non-prescribed substance use: marijuana (any form) service: No Exam Narrative: Exam Narrative: Const: Well-nourished, Well-developed, in moderate distress Eyes: PERRL, no conjunctival injection, and symmetrical lids HENT: Atraumatic external nose and ears. Moist mucous membranes. Neck: Symmetric, trachea midline, No thyromegaly. CVS: RRR, No murmurs or gallops. Peripheral pulses 2+ and equal in all extremities RESP: Unlabored respiratory effort. Clear to auscultation bilaterally. GI: Nontender/Nondistended, No rebound or guarding. MSK:Extremities w/o deformity, Normal Active ROM Skin: Warm, Dry. Lesions on her leg that appear dry Neuro: Normal Muscle tone, No focal neurological deficits. Psych: Awake, Alert, & Oriented x3. Appropriate mood and affect. Const: Vital Signs, click to edit/add: Vital Signs - 24 hr 12/17/23 11:02 Temperature 98.4 F Pulse Rate [Pulse Oximeter] 82 Respiratory Rate 16 Blood Pressure [Ri ght Upper Arm] 167/100 H Pulse Oximetry 97 Oxygen Delivery Me thod Room Air Course Vital Signs Vital signs: Initial Vital Signs Temperature 98.4 F 12/17/23 11:02 Temperature Source Temporal Artery Scan 12/17/23 11:02 Pulse Rate 82 12/17/23 11:02 Respiratory Rate 16 12/17/23 11:02 Blood Pressure 167/100 H 12/17/23 11:02 Blood Pressure Mean 122 H 12/17/23 11:02 Blood Pressure Position Sitting 12/17/23 11:02 Pulse Oximetry 97 12/17/23 11:02 Oxygen Delivery Method Room Air 12/17/23 11:02 Vital Signs Temperature 98.4 F 12/17/23 11:02 Pulse Rate 82 12/17/23 11:02 Respiratory Rate 16 12/17/23 11:02 Blood Pressure 167/100 H 12/17/23 11:02 Pulse Oximetry 97 12/17/23 11:02 Oxygen Delivery Method Room Air 12/17/23 11:02 Temperature 98.4 F 12/17/23 11:02 Pulse Rate 82 12/17/23 11:02 Respiratory Rate 16 12/17/23 11:02 Blood Pressure 167/100 H 12/17/23 11:02 Pulse Oximetry 97 12/17/23 11:02 Oxygen Delivery Method Room Air 12/17/23 11:02 Medications Administered Medications: Discontinued Medications Generic Name Dose Route Start Last Admin Trade Name Freq PRN Reason Stop Dose Admin Diphenhydramine HCl 25 mg 12/17/23 12:42 12/17/23 13:28 Diphenhydramine 50 Mg/Ml Inj IVP 12/17/23 12:43 25 mg ONCE ONE Administration Lactated Ringer's 1,000 mls @ 1,000 mls/hr 12/17/23 12:42 12/17/23 14:45 Lactated Ringers 1000 Ml IV 12/17/23 13:41 Infused .Q1H ONE Infusion Ketorolac Tromethamine 15 mg 12/17/23 12:42 12/17/23 13:28 Ketorolac 15 Mg/Ml Inj IVP 12/17/23 12:43 15 mg ONCE ONE Administration Metoclopramide HCl 10 mg 12/17/23 12:42 12/17/23 13:28 Metoclopramide Hcl 5 Mg/Ml Inj IVP 12/17/23 12:43 10 mg ONCE ONE Administration Morphine Sulfate 4 mg 12/17/23 12:42 12/17/23 13:28 Morphine 4 Mg/Ml Inj IM 12/17/23 12:43 4 mg ONCE ONE Administration MDM - Headache MDM Narrative Medical decision making narrative: Patient is a 38-year-old female presenting to the emergency department for headache. Since she just had a CT scan last week and symptoms are the same I do not believe a repeat CT scans necessary. Will order a migraine cocktail. She does not want ketamine at this time. After migraine cocktail she is feeling much better and feels well to go home. She will be discharged. Since the headache starts in the paraspinal muscles this might be caused by her neck and I will try given her muscle relaxers at discharge. She is agreeable to this plan. Did give her a dose of steroids to help prevent rebound headache Discharge Plan Discharge Clinical Impression: Headache Patient Disposition: Home, Self-Care Condition: Improved Instructions: Acute Headache (DC) Additional Instructions: Continue to take Tylenol and ibuprofen at home. Also tried taking the he muscle relaxer 3 times a day for the next 5 days to see if this helps with symptoms. Return to emergency department for new worsening symptoms. Prescriptions: New methocarbamol 750 mg tablet 1,500 mg PO TID 5 Days Qty: 30 0RF No Action oxycodone 5 mg tablet 5 mg PO DAILY citalopram 20 mg tablet 20 mg PO DAILY valacyclovir 1 gram tablet 1,000 mg PO TID Qty: 21 0RF hydrocodone-acetaminophen 5-325 mg tablet 1 tab PO Q4-6H PRN (Reason: pain) Qty: 10 0RF Follow Up/Referrals: Evon Lange MD [Primary Care Provider] - Stand Alone Forms: [employer] Info Instructions
[2023-12-17] MEDS: LACTATED RINGERS 1000 ML 1,000 ML IV (13:47)
[2023-12-17] MEDS: dexAMETHasone 4 MG TABLET 10 MG PO (15:02)
== END 2023-12-17 15:04 | disposition home or self-care (01) ==
PROVIDERS: Emergency Provider Student in an Organized Health Care Education/Training Program; PCP Family Medicine
DX: R51.9 Headache, unspecified (principal)
CPT/HCPCS: 96372; 96374; 96375; 99282; 99283; A9270; J1200; J1885; J2270; J2765; J7120

== ENCOUNTER 2024-11-05 10:13 | Emergency (ER) | payer OTHER, SELFPAY ==
--- OUTSIDE RECORDS SUMMARY | 2024-11-05 10:15 | XMS_ITS | Clinical Summary ---
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 Operator Name Role Phone Onelia Duong Conditions or Problems Problem Name Problem Code Onset Date Status Entry Date Provider Comment Standard Description Annotate Occipital neuralgia, bilateral [id number] (SNOMED CT) 05/18 Active 05/18 Varsha Suarezigel DNP,BILL DISTRIBUTOR,CN P Cervico-occi pital neuralgia Cervical spasm 69548733 (SNOMED CT) 12/16 Active 12/16 Varsha Jason Rechtzigel DNP,BILL DISTRIBUTOR,CN P Muscle spasm of head and/or neck Medication monitoring [id number] (SNOMED CT) 11/04 Active 11/04 Varsha Jason Rechtzigel DNP,BILL DISTRIBUTOR,CN P Medication monitoring Headache, rebound 57437278 (SNOMED CT) 06/18 Active 06/18 Varsha Jason Rechtzigel DNP,BILL DISTRIBUTOR,CN P Headache Chronic migraine without aura, with intractable migraine, so stated, without mention of status migrainosus [id number] 5 (SNOMED CT) 11/03 Active 11/03 Seth Jaimes MD Chronic intractable migraine without aura Cavernous hemangioma 324137007 (SNOMED CT) 08/15 Active 08/15 Seth Jaimes MD Cavernous hemangioma Bruxism 493561421 (SNOMED CT) Active Seth Jaimes MD Bruxism Neck pain 42124558 (SNOMED CT) Active Seth Jaimes MD Neck pain Headache 32705618 (SNOMED CT) Active Seth Jaimes MD Headache Medications Medication Instructions Start Date Stop Date Generic Name NDC Provider HYDROCODONE-ACETA MINOPHEN 10-325 MG TABS TAKE ONE TABLET BY MOUTH TWICE DAILY NEEDED FOR MIGRAINE RESCUE. USE NO MORE THAN TWO DAYS PER WEEK AND NO MORE THAN 16 TABLETS PER MONTH; CAUTION: RISK OF OVERDOSE AND ADDICTION. MAX ACETAMINOPHEN DOSE 4000 MG/24 HOURS. 01/05 hydrocodone-aceta minophen [id number] Willie Guillory MD HYDROCODONE-ACETA MINOPHEN 10-325 MG TABS TAKE ONE TABLET BY MOUTH TWICE DAILY NEEDED FOR MIGRAINE RESCUE. USE NO MORE THAN 2 DAYS PER WEEK AND NO MORE THAN 16 TABLETS PER MONTH. MAX ACETAMINOPHEN: 4000 MG/24 HOURS; CAUTION: OPIOID - RISK OF OVERDOSE AND ADDICTION hydrocodone-aceta minophen [phone] Willie Guillory MD HYDROCODONE-ACETA MINOPHEN 10-325 MG TABS TAKE ONE TABLET BY MOUTH TWICE A DAY NEEDED FOR MIGRAINE RESCUE. USE NO MORE THAN 2 DAYS PER WEEK AND NO MORE THAN 16 TABLETS PER MONTH. CAUTION: OPIOID - RISK OF OVERDOSE AND ADDICTION - MAXIMUM ACETAMINOPHEN DOSE 4000MG/24 HOURS. 12/08 hydrocodone-aceta minophen [id number] Dre Moore MD HYDROCODONE-ACETA MINOPHEN 10-325 MG TABS TAKE ONE TABLET BY MOUTH TWICE DAILY NEEDED FOR MIGRAINE RESCUE. USE NO MORE THAN TWO DAYS PER WEEK AND NO MORE THAN 16 TABLETS PER MONTH; CAUTION: RISK OF OVERDOSE AND ADDICTION. MAX ACETAMINOPHEN DOSE 4000 MG/24 HOURS. 01/05 hydrocodone-aceta minophen [id number] Dre Moore MD HYDROCODONE-ACETA MINOPHEN 10-325 MG TABS TAKE 1 TABLET BY MOUTH TWICE A DAY NEEDED FOR MIGRAINE RESCUE. USE NO MORE THAN 2 DAYS PER WEEK AND NO MORE THAN 16 TABLETS PER MONTH. CAUTION: OPIOID - RISK OF OVERDOSE AND ADDICTION 11/06 hydrocodone-aceta minophen [id number] Dre Moore MD HYDROCODONE-ACETA MINOPHEN 10-325 MG TABS TAKE ONE TABLET BY MOUTH TWICE A DAY NEEDED FOR MIGRAINE RESCUE. USE NO MORE THAN 2 DAYS PER WEEK AND NO MORE THAN 16 TABLETS PER MONTH. CAUTION: OPIOID - RISK OF OVERDOSE AND ADDICTION - MAXIMUM ACETAMINOPHEN DOSE 4000MG/24 HOURS. 8 hydrocodone-aceta minophen [id number] Dre Moore MD HYDROCODONE-ACETA MINOPHEN 10-325 MG TABS TAKE ONE TABLET BY MOUTH TWICE A DAY NEEDED FOR MIGRAINE RESCUE. USE NO MORE THAN 2 DAYS PER WEEK, AND NO MORE THAN 16 TABLETS PER MONTH. 10/06 hydrocodone-aceta minophen [id number] Seth Jaimes MD HYDROCODONE-ACETA MINOPHEN 10-325 MG TABS TAKE 1 TABLET BY MOUTH TWICE A DAY NEEDED FOR MIGRAINE RESCUE. USE NO MORE THAN 2 DAYS PER WEEK AND NO MORE THAN 16 TABLETS PER MONTH. CAUTION: OPIOID - RISK OF OVERDOSE AND ADDICTION 11/06 hydrocodone-aceta minophen [id number] Seth Jaimes MD SUMATRIPTAN SUCCINATE 100 MG TABS take 1 tab at start of severe headache, may repeat in 2 hours. max 2 tab/day, 3 day/week, 9 tab/month. 09/23 sumatriptan succinate [id number] Varsha Wallace DNP,BILL DISTRIBUTOR,CN P CITALOPRAM HYDROBROMIDE 20 MG TABS citalopram [id number] Varsha Wallace DNP,BILL DISTRIBUTOR,CN P HYDROCODONE-ACETA MINOPHEN 10-325 MG TABS TAKE 1 TABLET BY MOUTH 2 TIMES A DAY NEEDED FOR MIGRAINE RESCUE. USE NO MORE THAN 2 DAYS PER WEEK, AND NO MORE THAN 16 TABLETS PER MONTH 09/05 hydrocodone-aceta minophen [phone] Seth Jaimes MD HYDROCODONE-ACETA MINOPHEN 10-325 MG TABS TAKE ONE TABLET BY MOUTH TWICE A DAY NEEDED FOR MIGRAINE RESCUE. USE NO MORE THAN 2 DAYS PER WEEK, AND NO MORE THAN 16 TABLETS PER MONTH. 10/06 hydrocodone-aceta minophen [id number] Seth Jaimes MD DEPAKOTE ER 250 MG [id number] 3 PILLS AT BEDTIME FOR FOR MIGRAINE 09/02 divalproex [id number] Varsha Wallace DNP,BILL DISTRIBUTOR,CN P HYDROCODONE-ACETA MINOPHEN 10-325 MG TABS TAKE ONE TABLET BY MOUTH TWICE A DAY NEEDED FOR MIGRAINE RESCUE. USE NO MORE THAN 2 DAYS/WEEK AND NO MORE THAN 16 TABLETS PER MONTH. 07/10 hydrocodone-aceta minophen [id number] Seth Jaimes MD HYDROCODONE-ACETA MINOPHEN 10-325 MG TABS TAKE 1 TABLET BY MOUTH 2 TIMES A DAY NEEDED FOR MIGRAINE RESCUE. USE NO MORE THAN 2 DAYS PER WEEK, AND NO MORE THAN 16 TABLETS PER MONTH 09/05 hydrocodone-aceta minophen [id number] Seth Jaimes MD HYDROCODONE-ACETA MINOPHEN 10-325 MG TABS TAKE ONE TABLET BY MOUTH TWICE A DAY NEEDED FOR MIGRAINE RESCUE, USE NO MORE THAN 2 DAYS / WEEK AND NO MORE THAN 20 TABLETS PER MONTH 06/16 hydrocodone-aceta minophen [phone] Varsha Wallace DNP,BILL DISTRIBUTOR,CN P HYDROCODONE-ACETA MINOPHEN 10-325 MG TABS TAKE ONE TABLET BY MOUTH TWICE A DAY NEEDED FOR MIGRAINE RESCUE. USE NO MORE THAN 2 DAYS/WEEK AND NO MORE THAN 16 TABLETS PER MONTH. 15 hydrocodone-aceta minophen [id number] Seth Jaimes MD HYDROCODONE-ACETA MINOPHEN 10-325 MG TABS TAKE ONE TABLET BY MOUTH TWICE A DAY NEEDED FOR MIGRAINE RESCUE, USE NO MORE THAN 2 DAYS / WEEK AND NO MORE THAN 20 TABLETS PER MONTH 15 hydrocodone-aceta minophen [id number] Varsha Wallace DNP,BILL DISTRIBUTOR,CN P HYDROCODONE-ACETA MINOPHEN 10-325 MG TABS TAKE ONE TABLET BY MOUTH TWICE A DAY NEEDED FOR MIGRAINE RESCUE, USE NO MORE THAN 2 DAYS / WEEK AND NO MORE THAN 16 TABLETS PER MONTH 15 hydrocodone-aceta minophen [id number] Abiel Cristina MD ZOLMITRIPTAN 5 MG SOLN Take 5 mg as a single dose at onset of migraine; if symptoms persist or return, may repeat dose after 2 hours. Maximum of 5 mg/dose; 10 mg per 24 hours. Do not use more than 9 days per month. 05/24 zolmitriptan [id number] Varsha Wallace DNP,BILL DISTRIBUTOR,CN P SUMATRIPTAN SUCCINATE 100 MG TABS take 1 tab at start of severe headache, may repeat in 2 hours. max 2 tab/day, 3 day/week, 9 tab/month. 09/23 sumatriptan succinate [id number] Varsha Wallace DNP,BILL DISTRIBUTOR,CN P HYDROCODONE-ACETA MINOPHEN 10-325 MG TABS TAKE ONE TABLET BY MOUTH TWICE A DAY NEEDED FOR MIGRAINE RESCUE, USE NO MORE THAN 2 DAYS / WEEK AND NO MORE THAN 16 TABLETS PER MONTH 08/08 hydrocodone-aceta minophen [phone] Seth Jaimes MD TIZANIDINE HCL 2 MG TABS TAKE 1/2 TO 2 TABS AT BEDTIME BY MOUTH NEEDED FOR MIGRAINE AND MUSCLE SPASM tizanidine [id number] Varsha Wallace DNP,BILL DISTRIBUTOR,CN P ZOLMITRIPTAN 5 MG SOLN Take 5 mg as a single dose at onset of migraine; if symptoms persist or return, may repeat dose after 2 hours. Maximum of 5 mg/dose; 10 mg per 24 hours. Do not use more than 9 days per month. 05/10 zolmitriptan [id number] Varsha Wallace DNP,BILL DISTRIBUTOR,CN P HYDROCODONE-ACETA MINOPHEN 10-325 MG TABS TAKE ONE TABLET BY MOUTH TWICE A DAY NEEDED FOR MIGRAINE RESCUE *USE NO MORE THAN TWO DAYS PER WEEK, AND NO MORE THAN 16 TABLETS PER MONTH* MAX ACETAMINOPHEN DOSE OF 4000MG IN 24 HOURS 04/27 hydrocodone-aceta minophen [id number] Seth Jaimes MD HYDROCODONE-ACETA MINOPHEN 10-325 MG TABS TAKE ONE TABLET BY MOUTH TWICE A DAY NEEDED FOR MIGRAINE RESCUE, USE NO MORE THAN 2 DAYS / WEEK AND NO MORE THAN 16 TABLETS PER MONTH 08/08 hydrocodone-aceta minophen [phone] Seth Jaimes MD RIZATRIPTAN BENZOATE 10 MG TABS take 1 tab at onset of headache, may repeat in 2 hours if needed, Max 2 tab/day, 3 day/week, 9 tab/month. 0 rizatriptan [id number] Varsha Wallace DNP,BILL DISTRIBUTOR,CN P HYDROCODONE-ACETA MINOPHEN 10-325 MG TABS TAKE 1 TABLET BY MOUTH 2 TIMES DAILY NEEDED FOR MIGRAINE RESCUE (USE NO MORE THAN 2 DAYS PER WEEK, NO MORE THAN 16 TABLETS PER MONTH) 0 hydrocodone-aceta minophen [phone] Seth Jaimes MD HYDROCODONE-ACETA MINOPHEN 10-325 MG TABS TAKE ONE TABLET BY MOUTH TWICE A DAY NEEDED FOR MIGRAINE RESCUE *USE NO MORE THAN TWO DAYS PER WEEK, AND NO MORE THAN 16 TABLETS PER MONTH* MAX ACETAMINOPHEN DOSE OF 4000MG IN 24 HOURS 08/08 hydrocodone-aceta minophen [phone] Seth Jaimes MD HYDROCODONE-ACETA MINOPHEN 10-325 MG TABS Use 1 tablet twice a day as needed for pain 1 TAB BID FOR MIGRAINE RESCUE; USE NO MORE THAN 2 DAYS/WEEK. NO MORE THAN 16 PILLS/MONTH 12/31 hydrocodone-aceta minophen [phone] Seth Jaimes MD HYDROCODONE-ACETA MINOPHEN 10-325 MG TABS TAKE 1 TABLET BY MOUTH 2 TIMES DAILY NEEDED FOR MIGRAINE RESCUE (USE NO MORE THAN 2 DAYS PER WEEK, NO MORE THAN 16 TABLETS PER MONTH) 08/08 hydrocodone-aceta minophen [id number] Seth Jaimes MD DEPAKOTE ER 250 MG [id number] 1 PILL AT BEDTIME FOR 2 WEEKS, THEN INCREASE TO 2 PILLS FOR MIGRAINE 12/16 divalproex [id number] Varsha Wallace DNP,BILL DISTRIBUTOR,CN P DEPAKOTE ER 250 MG [id number] 3 PILLS AT BEDTIME FOR FOR MIGRAINE divalproex [id number] Varsha Wallace DNP,BILL DISTRIBUTOR,CN P HYDROCODONE-ACETA MINOPHEN 10-325 MG TABS Use 1 tablet twice a day 8 hydrocodone-aceta minophen [id number] Seth Jaimes MD HYDROCODONE-ACETA MINOPHEN 10-325 MG TABS Use 1 tablet twice a day as needed for pain 1 TAB BID FOR MIGRAINE RESCUE; USE NO MORE THAN 2 DAYS/WEEK. NO MORE THAN 16 PILLS/MONTH 4/15 hydrocodone-aceta minophen [id number] Seth Jaimes MD DEPAKOTE ER 250 MG [id number] 1 PILL AT BEDTIME FOR 2 WEEKS, THEN INCREASE TO 2 PILLS FOR MIGRAINE divalproex [id number] Varsha Wallace DNP,BILL DISTRIBUTOR,CN P RIZATRIPTAN BENZOATE 10 MG TABS take 1 tab at onset of headache, may repeat in 2 hours if needed, Max 2 tab/day, 3 day/week, 9 tab/month. 0 rizatriptan [id number] Varsha Wallace DNP,BILL DISTRIBUTOR,CN P HYDROCODONE-ACETA MINOPHEN 10-325 MG TABS Use 1 tablet twice a day 4/15 hydrocodone-aceta minophen [id number] Seth Jaimes MD CITALOPRAM HYDROBROMIDE 40 MG TABS 09/23 citalopram [id number] Seth Jaimes MD RIZATRIPTAN BENZOATE 10 MG TABS take 1 tab at onset of headache, may repeat in 2 hours if needed, Max 2 tab/day, 3 day/week, 9 tab/month. 8 RIZATRIPTAN BENZOATE [id number] Varsha Suarezigel [facility],BILL DISTRIBUTOR,CN P NURTEC 75 MG TBDP 1 TAB AT ONSET OF MIGRAINE; 75MG MAX/24 HRS. NO MORE THAN 2X/WEEK; NO MORE THAN 8/MONTH 08/06 RIMEGEPANT SULFATE [id number] Varsha Gomez Emiltzigel [facility],BILL DISTRIBUTOR,CN P HYDROCODONE-ACETA MINOPHEN 10-325 MG TABS 1 TAB BID FOR MIGRAINE RESCUE; USE NO MORE THAN 2 DAYS/WEEK. NO MORE THAN 16 PILLS/MONTH 08/08 HYDROCODONE-ACETA MINOPHEN [id number] Varsah Gomez Rechtzigel [facility],BILL DISTRIBUTOR,CN P NORCO 10-325 MG ORAL TABLET 1 TAB BID FOR MIGRAINE RESCUE; USE NO MORE THAN 2 DAYS/WEEK. NO MORE THAN 16 PILLS/MONTH 06/19 HYDROCODONE-ACETA MINOPHEN Seth Jaimes MD DEPAKOTE ER 250 MG [id number] 1 PILL AT BEDTIME FOR 2 WEEKS, THEN INCREASE TO 2 PILLS FOR MIGRAINE DIVALPROEX SODIUM [id number] Seth Jaimes MD TRAMADOL HCL 50 MG TABS 50 to 100 mg Q 8 hours PRN for pain 06/18 TRAMADOL HCL [id number] [facility],BILL DISTRIBUTOR,CN P NURTEC 75 MG TBDP 1 TAB AT ONSET OF MIGRAINE; 75MG MAX/24 HRS. NO MORE THAN 2X/WEEK; NO MORE THAN 8/08/06 RIMEGEPANT SULFATE [id number] [facility],BILL DISTRIBUTOR,CN P TOPAMAX 50 MG TABS 50 mg Q HS x 1 week, 50 mg BID 06/17 TOPIRAMATE [id number] Seth Jaimes MD TRAMADOL HCL 50 MG TABS 50 to 100 mg Q 8 hours PRN for pain 06/18 TRAMADOL HCL [id number] Seth Jaimes MD TOPAMAX 50 MG TABS 50 mg Q HS x 1 week, 50 mg BID 15 TOPIRAMATE [id number] Seth Jaimes MD NORCO 10-325 MG ORAL TABLET 1 to 2 tabs q 6 hours prn for pain x 5 days 06/18 HYDROCODONE-ACETA MINOPHEN 84758710016 Seth Jaimes MD TIZANIDINE HCL 2 MG TABS 2 to 4 mg Q HS 08/16 TIZANIDINE HCL [id number] Seth Jaimes MD NORCO 10-325 MG ORAL TABLET 1 to 2 tabs q 6 hours prn for pain x 1 week 10/22 HYDROCODONE-ACETA MINOPHEN 29773572740 Seth Jaimes MD TIZANIDINE HCL 2 MG TABS 2 to 4 mg Q HS 10/03 TIZANIDINE HCL 21591647007 Seth Jaimes MD NORTRIPTYLINE HCL 25 MG CAPS 25 MG QHS x 1 WEEK, 50 MG QHS 08/16 NORTRIPTYLINE HCL 82857625277 Seth Jaimes MD NORTRIPTYLINE HCL 25 MG CAPS 25 MG QHS x 1 WEEK, 50 MG QHS 11/03 NORTRIPTYLINE HCL 70565069386 Seth Jaimes MD BUSPIRONE HCL 15 MG TABS 08/15 BUSPIRONE HCL [id number] Seth Jaimes MD BUSPIRONE HCL 15 MG TABS 08/15 BUSPIRONE HCL 54107534817 Seth Jaimes MD CYCLOBENZAPRINE HCL 10 MG TABS 08/15 CYCLOBENZAPRINE HCL 70367175578 Seth Jaimes MD HYDROCODONE-ACETA MINOPHEN 5-325 MG TABS 08/15 HYDROCODONE-ACETA MINOPHEN 88983310559 Seth Jaimes MD HYDROCODONE-ACETA MINOPHEN 5-325 MG TABS 08/15 HYDROCODONE-ACETA MINOPHEN 20162690650 Seth Jaimes MD CYCLOBENZAPRINE HCL 10 MG TABS 08/15 CYCLOBENZAPRINE HCL [id number] Seth Jaimes MD CITALOPRAM HYDROBROMIDE 40 MG TABS 12/03 CITALOPRAM HYDROBROMIDE [id number] Seth Jaimes MD Medications Administered No information available. 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 FALLRSKASSES Done Fall ris k assessment SMOK STATUS former smoker Tob acco smoking status Internal Other: Verbal Autho rization/Emergency Contact - OBS VERBAL_EMER DONE Verbal au thorization and emergency contact Internal Other: Authorizatio n - OBS [id number] Yes GE use only - for Link[employer] import when terms are not otherwise specified Office Visit: Office Visit f ax MEDS REVIEW Done Documenta tion of current medications (procedure) Internal Other: Authorizatio n - OBS [email or web address] Yes Authoriza tion: Release of Information - Authorize [facility] - Payment and Healthcare Operations ROIAUTHOTHER Yes Authoriz ation: Release of Information - Authorize Others/Insurance - Payment and Healthcare Operations HIECONSENT Yes Consent To Release information to the Health Information Exchange (HIE) [email or web address] Yes Authorizat ion: Authorization for [facility] to leave messages, voicemail, send text messages, send emails AUTHRELHCARE Yes Authoriz ation: Release/Retrieval of Information to/from Healthcare Facilities, Pharmacy Benefit Payers and Providers AUTHPRIVPRAC Yes Authoriz ation: Notice of privacy practices AUTHBENEFIT Yes Authoriza tion: Assignment of Benefits and Payment Agreement Plan of Care Type Date Detail Pending order Vyepti Infusion Pending order Vyepti Infusion Pending Order exclud ed from report: Pending order Follow up in cli i[facility] or telemedicine Pending Order exclud ed from report: Pending order Follow up in cli irene or telemedicine Pending order Other Order Pending order Botox Injection Pending order Botox Injection Pending order Instructions for Staff Pending order Physical Therapy Pending order CBC with Diff/Pl atelet Pending order Ferritin Serum Pending order Hepatic Function Panel (7) Pending order Vitamin D 25 Hyd da Pending order Occipital Nerve Block and Trigger Point Injections Pending order Trigger Point In jections Pending order Ammonia Pending order CBC with Diff/Pl atelet Pending order Hepatic Function Panel (7) Pending order Update Referring Provider Pending order Hepatic Function Panel (7) Pending Order exclud ed from report: Pending order CBC with Diff/Pl atelet Pending Order exclud ed from report: Pending order Ammonia Pending Order exclud ed from report: Pending order Botox Injection Pending order CBC with Diff/Pl atelet Pending order Hepatic Function Panel (7) Pending order Occipital Nerve Block and Trigger Point Injections Pending order CBC with Diff/Pl atelet Pending Order exclud ed from report: Pending order Hepatic Function Panel (7) Pending Order exclud ed from report: Pending order Occipital Nerve Block and Trigger Point Injections Pending order Migraine Infusio n Order Set #11: Ativan/ Depacon / Zofran/ Toradol/ Solu-Medrol Pending Order exclud ed from report: Pending order Migraine Infusio n Order Set #11: Ativan/ Depacon / Zofran/ Toradol/ Solu-Medrol Pending order Work Note Pending order Physical Therapy Pending order Follow up Pending order CBC with Diff/Pl atelet Pending order Hepatic Function Panel (7) Pending order Botox Injection Pending order CBC with Diff/Pl atelet Pending Order exclud ed from report: Pending order Hepatic Function Panel (7) Pending Order exclud ed from report: Pending order Botox Injection Pending order Patient Instruct ions Pending order Obtain outside r ecords Pending order Headache Diary Pending order Other Handout Pending order Other Handout Pending order Botox Injection Pending order Botox Injection Pending order Botox Injection Pending order Neurotoxin Pending order Neurotoxin Pending order MRA-Head W/O Pending order MRI-Brain W/O Pending order Follow up after testing Pending order Other Referral Patient education Medications Patient education Medications Patient education Medications Patient education Medications Patient education Medications Patient education Medications Patient education Medications Patient education Medications Procedures Code Procedure Name Date Entry Date ORDERS Vyepti Infusion ORDERS Follow up in clinic or telemedicine 12/11 ORDERS Other Order ORDERS Occipital Nerve Block and Trigger Point I njections ORDERS Botox Injection ORDERS CBC with Diff/Platelet 07/24 ORDERS Ferritin Serum ORDERS Hepatic Function Panel (7) 2 ORDERS Vitamin D 25 Hydroxy ORDERS Instructions for Staff 07/24 ORDERS Botox Injection CPT-J0585 Botox 2 vials CPT-20087 Chem - Face/Neck - Migraine or Headache 2 ORDERS Physical Therapy ORDERS Trigger Point Injections 202 05/27/05 CPT-J0585 Botox 2 vials CPT-01743 Chem - Face/Neck - Migraine or Headache 2 ORDERS Update Referring Provider 20 17/05/05 ORDERS Hepatic Function Panel (7) 2 ORDERS CBC with Diff/Platelet 05/01 ORDERS Ammonia ORDERS Botox Injection CPT-81744 Trigger point inj (3+ musc) CPT-3720967 Occipital nerve block (Greater [place]) bilat eral CPT-J1100 Dexamethasone -- 10 mg 03/18 ORDERS CBC with Diff/Platelet 03/18 ORDERS Hepatic Function Panel (7) 2 ORDERS Occipital Nerve Block and Trigger Point I njections ORDERS Occipital Nerve Block and Trigger Point I njections CPT-J0585 Botox 2 vials CPT-43086 Chem - Face/Neck - Migraine or Headache 2 ORDERS Migraine Infusion Or wes Set #11: Ativan/ Depacon / Zofran/ Toradol/ Solu-Medrol [id number] Documentation of current medicatio ns ORDERS Physical Therapy CPT-79177 Trigger point inj (3+ musc) CPT-J1100 Dexamethasone - 5 mg ORDERS Work Note ORDERS Follow up CPT-J0585 Botox 2 vials CPT-39816 Chem - Face/Neck - Migraine or Headache 2 ORDERS CBC with Diff/Platelet 11/04 ORDERS Hepatic Function Panel (7) 2 ORDERS Botox Injection ORDERS Botox Injection CPT-J0585 Botox 2 vials CPT-81969 Chem - Face/Neck - Migraine or Headache 2 [id number] Documentation of current medicatio ns ORDERS Patient Instructions ORDERS Other Handout ORDERS Other Handout ORDERS Headache Diary ORDERS Obtain outside records 06/18 ORDERS Botox Injection ORDERS Botox Injection CPT-J0585 Botox 2 vials CPT-40339 Chem - Face/Neck - Migraine or Headache 2 ORDERS Botox Injection ORDERS Neurotoxin CPT-J0585 Botox 2 vials CPT-98276 Chem - Face/Neck - Migraine or Headache 2 [id number] Documentation of current medicatio ns ORDERS Neurotoxin [id number] Documentation of current medicatio ns [id number] Documentation of current medicatio ns ORDERS Follow up after testing 2019 [id number] MRA-Head W/O [id number] MRI-Brain W/O [id number] Other Referral Vital Signs Date Name Value Unit Description Height 65.25 [in_us] height E&M BMI (Body Mass Index) 18.73 kg/m2 Bod y Mass Index (Ratio) BP Diastolic 60 mm[Hg] blood pressu re, diastolic BP Systolic 88 mm[Hg] blood pressur e, systolic Weight Measured 113 [lb_av] weight E& M Weight Measured 113 [lb_av] weight E& M Immunizations No information available. Advance Directives No information available.
--- OUTSIDE RECORDS SUMMARY | 2024-11-05 10:15 | XMS_ITS | Clinical Summary ---
Author Organization [facility] Address [address] [place] [address] Care Team Providers Care Functional Analyst Name Role Phone Evon Lange MD Primary Care Provider Allergies Active Allergy Reactions Criticality Noted Date Comments Amoxicillin Rash 03/02/2013 Tolerates cephalosporins Clindamycin Rash 10/25/2015 Tramadol Other - Describe In Comment Field 11/18/2017 Rebound headache, upset stomach. Medications citalopram (CELEXA) 20 mg tabletIndication s:Anxiety Take 1 Tablet (20 mg) by mouth every morning. Take along with 10 mg tablet for total of 30 mg daily. 90 Tablet 3 3 Active hydrOXYzine HCL (ATARAX) 25 mg tabletIndication s:Panic attacks,Anxiety Take 1 Tablet (25 mg) by mouth every 6 hours if needed for Anxiety. 30 Tablet 11 3 Active oxyCODONE (ROXICODONE) 5 mg immediate release tabletIndication s:Headache in back of head Take 1 Tablet (5 mg) by mouth every 4 hours if needed for Pain. 30 Tablet 4 Active oxyCODONE (ROXICODONE) 5 mg immediate release tabletIndication s:Right shoulder pain, unspecified chronicity One oral three times daily as needed. 15 Tablet 4 Active nicotine 21 mg/24 hr 21 mg/24 hr patchIndications :Tobacco use disorder Apply 1 Patch on dry, clean, hairless skin once daily. 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 Angiogram showed normal vessels- no cause determined Angiogram showed normal vessels- no cause determined. Recommended to be off OCP and stop smoking. Should not be taking ibuprofen Herpes simplex without mention of complication 0 07/30/2005 Headache(784.0) 07/30/2005 TOBACCO USE 05/22/2002 Resolved Problems Problem Noted Date Diagnosed Date Resolved Date Cavernous hemangioma of brain 03/30/2023 03/30/2023 Controlled substance agreement terminated 06/29/2016 06/29/2016 Request for sterilization 10/25/2015 Previous section 10/25/2015 S/P section 10/25/2015 016 Supervision of high risk pre gnancy, antepartum 10/02/2015 03/02/2016 Other normal , not first 04/18/2015 03/02/2016 Overview (04/18/2015): 29 y.o. Medical concerns: Cavernous Hemangioma dx at age 17 H/O delivery: C/S X 2 (Scotty 08/12/06 and Anson 08/16/08) CS due to cavernous hemangioma. Genetic screening: declines BMI:# Recommended wt gain 25-35 Smoking: Quit in January HSV: hx per chart Ultrasound findings: IMPRESSION: 1. Olivas, viable, intrauterine . 2. Ultrasound ARIEL is 11/08/2015 with a gestational age of 7 weeks 0 days. This is the final ARIEL. 3. No adnexal masses are seen. Soledad Galdamez Hurtado, DO 03/25/2015 1:02 PM Flu vaccine: Pertussis Vaccine: Peds: Single keeping/: FOB:Involved/Pepe Castelan RN .................... 04/18/2015 9:15 AM Renal infarct 12/23/2010 10/05/2016 Overview (12/23/2010): CT From [facility] 11/2010 Hypercoagulable w/u negative. C section 08/16/2008 03/02/2016 Supervision of high risk pre gnancy, antepartum 02/05/2006 03/02/2016 state, incidental 01/08/2006 0 05/26/2010 Misscariage 10/13/2005 03/02/2016 COLD SORE 09/26/2004 05/26/2010 VAGINITIS NOS 09/16/2004 07/30/2005 See Logician for additional problems 06/16/2003 07/30/2005 Immunizations Immunization Administration Dates Next Due DT (Age < 7 years) 11/03/1994 DTaP 11/03/1994 Hepatitis B (Adult) 01/14/2010,07/29/2009,2009 Influenza, IIV3 (Age >=3 years) 04/06/2008,03/05 MMR 11/03/1994 Tdap 10/17/2015,01/17/2009 Tuberculin (PPD) 01/28/2005 Family History Medical History Relation Name Comments Asthma Brother Good Health Father Heart Disease Maternal Grandfather Hypertension Maternal Grandfather Cancer-breast Maternal Grandmother Glaucoma Maternal Grandmother Hypertension Maternal Grandmother Other Maternal Grandmother kidney stones Anemia Mother Anxiety disorder Mother Depression Mother Good Health Mother Genetic Other 1 Mom- mmigraines . Genetic Other 2 Mom- migraines. ~No family history of bleeding disorders or anesthesia problems Cancer-breast Paternal Aunt Good Health Paternal Grandmother Other Paternal Grandmother pggm gl aucoma and blindness Heart Disease Paternal Uncle 1 Heart Disease Paternal Uncle 2 Mental illness Paternal Uncle 2 Suicide Allergies Sister Anxiety disorder Sister Thyroid cancer Sister Relation Name Status Comments Brother Father Alive Maternal Grandfather Maternal Grandmother Alive Mother Alive Other 1 Other 2 Paternal Aunt Paternal Grandfather Alive Paternal Grandmother Alive Paternal Uncle 1 Paternal Uncle 2 Sister Social History Tobacco Use Types Packs/Day Years Used Date Smoking Tobacco: Every Day Cigarettes 0.3 31.5 Started: 04/26/1993 Smokeless Tobacco: Never Tobacco Cessation:Ready to Q uit: No; Counseling Given: No Comments:pamphlet given 12/19/2014 Alcohol Use Standard Drinks/Week Comments No 0 (1 standard drink = 0.6 oz pur e alcohol) PHQ-2 Answer Date Recorded PHQ-2 TOTAL SCORE 5 06/26/2022 Social Connections Answer Date Recorded Do you often feel lonely or isolated from those around you? 0 04/11/2024 Financial Resource Strain Answer Date R ecorded Difficulty of Paying Living Expenses 3 04/11/2024 Difficulty of Paying Living Expenses Not on file 04/11/2024 Food Insecurity Answer Date Recorded Do you worry your food will run out before you are able to buy more? 1 04/11/2024 Transportation Needs Answer Date Record ed Does lack of transportation keep you from medica l appointments? 1 04/11/2024 Does lack of transportation keep you from work, meetings or getting things that you need? 1 04/11/2024 Housing Stability Answer Date Recorded What is your housing situation today? 1 04/11/2024 Utilities Answer Date Recorded Do you have trouble paying f or utilities (for example, heat, electricity, water, phone)? 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 Not on file Not on file Not on file Obstetrics History Para Term AB IAB SAB Ectopic Multiple Livin g Live Births 5 3 3 0 2 1 1 0 0 3 3 Date Outcome GA Total Labor Labor/2nd/3rd Weight Sex Type Anes PTL Angeline A1 A5 Name Clin 2000 IAB /200 6 SAB 2006 Term 3.03 kg (6 lb 11 oz) M C-Sec tion Livin g SCOTTY 2008 Term 37w 3d 6h 00m/ 3.67 kg (8 lb 1.6 oz) M C-Sec tion Livin g Anson Delivery Location:[facility] 2015 Term 38w 0d 3.43 kg (7 lb 9 oz) M C-Sec tion Spinal Livin g [address] Mckay Complications:None Delivery Location:[facility] Last Filed Vital Signs Vital Sign Reading Time Taken Comments Blood Pressure 132/78 07/25/2024 7:43 AM CDT Pulse 69 07/25/2024 7:43 AM CDT Temperature 36.9 C (98.5 F) 12/17/2023 10:01 AM CDT Respiratory Rate 16 12/06/2022 10:34 AM CDT Oxygen Saturation 96% 07/25/2024 7:43 AM CDT Inhaled Oxygen Concentration - - Weight 55.2 kg (121 lb 9.6 oz) 07/25/2024 7:43 A M CDT Height 165.5 cm (5' 5.16) 03/30/2023 10:[address] Body Mass Index 20.14 03/30/2023 10:35 AM MANAGER UTILITIES Plan of Treatment Health Maintenance Due Date Last Done Comments Hepatitis C screening for ag e 18-79 11/22/2001 Pneumococcal series for age 6-49 (1 of 2 - PCV) 11/22/2002 Depression screening for age 12+ 06/27/2023 06/26/2022, 04/04/2021, 04/03/2021, Additional history exists COVID-19 vaccine series ( - season) 2023 BMI (ht and wt on same day) for age 18+ 03/30/2024 03/30/2023, 06/26/2022, 04/02/2021, Additional history exists Influenza Vaccine (#1) 2024 04/06/2008, 2005 Pap test for age 21-65 01/11/2025 , 01/12/2020, 12/19/2014, Additional history exists Tetanus booster 10/16/2025 10/17/2015, 01/17/2009 Hepatitis B series for 19+ Completed 01/14, 07/29/2009, 06/28/2009 HIV for age 15-65 Completed 04/18/2015, 02/14/2008 Procedures Procedure Name Priority Date/Time Associated Diagnosis Comments PROPERTY ADMINISTRATOR THIN PREP PAP SCREEN IMAGED Routine 01/12/2020 10:45 AM CDT Pap smear for cervical cancer screening ANTI HIV 1/2 Routine 04/18/2015 8:58 AM MANAGER UTILITIES Other normal , not first, unspecified trimester from Last 3 Months or Most Recently Relevant to Health Maintenance Results * PROPERTY ADMINISTRATOR THIN PREP PAP SCREEN IMAGED (01/12/2020 10:45 AM CDT) Case Report Gynecologic Cytology Report Case: [id number] Authorizing Provider: Annita Yuan NP Collected: 01/12/2020 1045 Ordering Location: [facility] Received: 01/12/2020 1141 Clinic First Screen: Larisa Tracey Specimen: PROPERTY ADMINISTRATOR ThinPrep Vial Screening, Cervical 01/22/2020 11:21 AM CDT [facility] INTERPRETATION/ RESULT NEGATIVE FOR INTRAEPITHELIAL LESION OR MALIGNANCY (NIL) (none) 01/22/2020 11:21 AM CDT [facility] at 1121 CDT SPECIMEN ADEQUACY Satisfactory for evaluation Endocervical component present 01/22/2020 11:21 AM CDT [facility] HPV REQUEST HPV and PAP 01/22/2020 11:21 AM CDT [facility] Date of LMP 01/04/2020 01/22/2020 11:21 AM CDT [facility] Last Pap Date 12/19/14 01/22/2020 11:21 AM CDT [facility] Last Pap Result NIL 0 11:21 AM CDT [facility] Abnormal Pap or [place] Bx in last 5 years No 01/22/2020 11:21 AM CDT [facility] Menstrual Status Regular Periods 01/22/2020 11:21 AM CDT [facility] [place] Bx Done Today No 01/22/2020 11:21 AM CDT [facility] Additional Information None given 01/22/2020 11:21 AM CDT [facility] Comment: Cytology is screened at [facility] - [address], [place] [address] and [facility] - [address] [place] [address], [place] [address] and [facility] - [address] [place] [address] Interpreted at [facility] - [address], [place] [address] Automated Review Successful 01/22/2020 11:21 AM CDT [facility] Comment:Specimen processed s uccessfully by automated circle shear operator device, ThinPrep Imaging System, [employer] ANCILLARY TESTING PROPERTY ADMINISTRATOR HPV Ordered, Please see separate report 01/22/2020 11:21 AM CDT [facility] Note The pap test is a screening technique, not a diagnostic procedure. It is used primarily to screen for squamous cancers and precursor lesions. Published studies have shown that it is subject to both false negative and false positive results. The pap test should not be used as the sole means to diagnose or exclude pre-malignant and malignant lesions. 01/22/2020 11:21 AM CDT [facility] Other (Cervical) Non-Blood / Unknown 01/12/2020 10:45 AM CDT 01/12/2020 11:41 AM CDT Annita Yuan NP PATHOLOGY/CYTOLOGY Final Result [facility] [address] [place] [address], [place] * ANTI HIV 1/2 (04/18/2015 8:58 AM MANAGER UTILITIES) HIV-1/HIV-2 ANTIBODY Non-Reacti ve Non-Reacti ve 04/18/2015 3:31 PM MANAGER UTILITIES [facility] Blood specimen (specimen) BLOOD SPECIMEN / Unknown Butterfly / Unknown 04/18/2015 8:58 AM MANAGER UTILITIES 04/18/2015 8:58 AM MANAGER UTILITIES Narrative [facility] - 04/18/2015 3:31 PM MANAGER UTILITIES HIV-1 p24 and HIV-1/HIV-2 Ab not detected us Devante Bailey MD SEND OUTS Final R esult [facility] [address] [place] [address], [place] from Last 3 Months or Most Recently Relevant to Health Maintenance Advance Directives * Full Code (Latest Code Status on File) Date Activated Date Inactivated Comments 03/08/2020 9:46 AM 03/08/2020 7:54 PM Question Answer Comments Code Status Discussion: Not Discussed * Full Code Date Activated Date Inactivated Comments 10/25/2015 5:26 AM 10/28/2015 4:41 PM * Full Code Date Activated Date Inactivated Comments 10/25/2015 3:35 AM 10/25/2015 5:26 AM * Full Code Date Activated Date Inactivated Comments 08/29/2015 1:22 PM 08/29/2015 9:24 PM * Full Code Date Activated Date Inactivated Comments 08/15/2008 11:47 PM 08/16/2008 6:41 AM Care Teams Functional Analyst Relationship Specialty Start Date End Date Evon Lange MD [address] [place] [address] PCP - General Family Practice 03/04/20
[2024-11-05 10:19] VITALS: BP 188/99; PULSE 72; RESP 18; TEMP 36.2; O2SAT 97; BMI 19.4
--- NOTE | 2024-11-05 10:40 | ED.GENADULT ---
HPI - General Adult General Time Seen by Provider: 10:40 Date Seen: 11/05/24 Chief complaint: Cough Stated complaint: lungs hurt Time Seen by Provider: 11/05/24 10:40 Source: patient and RN notes reviewed Mode of arrival: ambulatory Limitations: no limitations History of Present Illness HPI narrative: Debbie is a very pleasant 38-year-old female with history of anxiety and diskectomy currently on oxycodone muscle relaxer and citalopram who comes to the emergency room for evaluation of lung pain. Patient notes that ever since last WednesdayNovember 01 she has been experiencing pain associated with coughing and breathing. She notes that she does have some production but it is clear. She does endorse a runny nose. No fever or chills. This seems to have occurred after she was doing a lot of standing as they are renovating a home. She was not wearing a mask. Also a smoker but no history of emphysema or asthma. No known recent exposures to COVID influenza RSV. No nausea vomiting. No recent history of travel, history of DVT or swelling of the lower extremities. Related Data Home Medications ?Medication ?Instructions ?Recorded ?Confirmed citalopram 20 mg tablet 20 mg PO DAILY 02/15/23 11/05/24 oxycodone 5 mg tablet 5 mg PO DAILY 04/13/23 12/09/23 Previous Rx's ?Medication ?Instructions ?Recorded hydrocodone 5 mg-acetaminophen 325 1 tab PO Q4-6H PRN pain #10 tabs 12/09/23 mg tablet valacyclovir 1 gram tablet 1,000 mg PO TID #21 tabs 12/09/23 methocarbamol 750 mg tablet 1,500 mg (2 x 750 mg) PO TID 5 12/17/23 days #30 tabs albuterol sulfate 2.5 mg/3 mL 2.5 mg (3 mL) inhalation QID PRN 11/05/24 (0.083 %) solution for nebulization #75 mL nebulizer and compressor #1 ea 11/05/24 Allergies Allergy/AdvReac Type Severity Reaction Status Date / Time Penicillins Allergy Intermediate Rash Verified 11/05/24 10:19 amoxicillin Allergy Verified 04/29/23 17:58 clindamycin Allergy Verified 04/29/23 17:58 fentanyl Allergy Verified 04/29/23 17:58 midazolam (From Versed) Allergy Verified 04/29/23 17:58 Review of Systems Status of ROS: Reports: 6 or more systems reviewed and unremarkable except as noted in History and below [facility] Social History Smoking Status: Current every day smoker What tobacco products do you use: cigarettes Smoking packs per day: 0.5 Smoking cigarettes per day: 10.0 Do you use any of these nicotine containing products: None Second hand tobacco smoke exposure: No How often do you have a drink containing alcohol: never How often do you have six or more drinks on one occasion: Never AUDIT-C Alcohol total score: 0 Non-prescribed substance use: marijuana (any form) service: No Exam Narrative: Exam Narrative: Alert and oriented. No acute distress. Eyes are clear face symmetrical. Oral cavity is moist mucous membranes. Posterior oropharynx without erythema. No anterior cervical lymphadenopathy. Neck is supple. Heart with regular rate and rhythm and lungs are with distant breath sounds. Some expiratory wheezing noted. No squeaking noted. Abdomen soft. Lower extremities without edema there is no calf tenderness. Const: Vital Signs, click to edit/add: Vital Signs - 24 hr 11/05/24 10:19 11/05/24 12:18 Temperature 97.2 F L Pulse Rate [Pulse Oximeter] 72 60 Respiratory Rate 18 16 Blood Pressure [Ri ght Upper Arm] 188/99 H Pulse Oximetry 97 96 Oxygen Delivery Me thod Room Air Room Air Documenting provider has reviewed patient's vital signs: yes Course Course ED Course: Differential diagnosis includes but is not limited to URI, COVID/influenza/RSV, pneumonitis, reactive airway, PE. Patient will have IV placed and labs drawn to include CBC, basic panel, D-dimer. Will also try a nebulizer to see if this is helpful. Plan on chest x-ray at this time. Plan on CT of the chest a D-dimer does come back elevated Reevaluation(s) Reevaluation #1: No evidence of pneumonia on x-ray. D-dimer within normal limits. Patient with slightly subjective improvement of her breathing but auscultatory findings show significant improvement of any wheezing. Vital Signs Vital signs: Initial Vital Signs Temperature 97.2 F L 11/05/24 10:19 Temperature Source Temporal Artery Scan 11/05/24 10:19 Pulse Rate 72 11/05/24 10:19 Respiratory Rate 18 11/05/24 10:19 Blood Pressure 188/99 H 11/05/24 10:19 Blood Pressure Mean 128 H 11/05/24 10:19 Pulse Oximetry 97 11/05/24 10:19 Oxygen Delivery Method Room Air 11/05/24 10:19 Vital Signs Temperature 97.2 F L 11/05/24 10:19 Pulse Rate 72 11/05/24 10:19 Respiratory Rate 18 11/05/24 10:19 Blood Pressure 188/99 H 11/05/24 10:19 Pulse Oximetry 97 11/05/24 10:19 Oxygen Delivery Method Room Air 11/05/24 10:19 Temperature 97.2 F L 11/05/24 10:19 Pulse Rate 60 11/05/24 12:18 Respiratory Rate 16 11/05/24 12:18 Blood Pressure 188/99 H 11/05/24 10:19 Pulse Oximetry 96 11/05/24 12:18 Oxygen Delivery Method Room Air 11/05/24 12:18 Medications Administered Medications: Discontinued Medications Generic Name Dose Route Start Last Admin Trade Name Liam PRN Reason Stop Dose Admin Albuterol 2.5 mg 11/05/24 11:06 11/05/24 11:21 Albuterol Sulfate 2.5 Mg/3 Ml Vial.Neb NEB 11/05/24 11:07 2.5 mg ONCE ONE Administration Dexamethasone 8 mg 11/05/24 12:15 11/05/24 12:17 Dexamethasone 10 Mg/Ml Pf IVP 11/05/24 12:16 8 mg ONCE ONE Administration Medical Decision Making [facility] Narrative Medical decision making narrative: 1. Cough-certainly this could be I URI although she has tested negative for COVID/influenza/RSV or some pneumonitis secondary to standing without protective gear. Patient is improved with albuterol. Would have her continue this at home and a prescription for the nebulizer plus albuterol Q 4-6 hours p.r.n. is given to the patient. We spoke about the use of prednisone but patient notes that it causes her to be very angry. She has successfully had dexamethasone in the past however. Will give her dose of 8 mg today. I would advise against any antibiotic given these findings. Although she is a smoker she does not describe significant bronchitis or bacterial cause and her O2 sats are 96%. I do not think we need to do CT given the x-ray and negative D-dimer. 2. Disposition-home at this time. Return for worsening symptoms especially after a period of improvement. Medical Records Medical records reviewed: Yes I reviewed the patient's medical records Lab Data Lab results reviewed: Yes I reviewed the patient's lab results Labs: Lab Results 11/05/24 Range/Units 11:10 WBC 6.78 (4.50-11.00) K/uL RBC 4.96 (4.00-5.20) m/uL Hgb 15.0 (12.0-16.0) gm/dL Hct 44.8 (33.0-51.0) % MCV 90 (80-100) fL MCH 30 (26-34) pg MCHC 34 (32-36) gm/dL RDW Coeff of Katiana 13.4 (11.5-15.5) % Plt Count 237 (140-440) K/uL Neut % (Auto) 74.5 H (42.0-72.0) % Lymph % (Auto) 15.9 L (20-44) % [place] % (Auto) 7.7 (0.0-11.0) % Eos % (Auto) 1.5 (0.0-7.0) % Baso % (Auto) 0.4 (0.0-3.0) % Neut # (Auto) 5.10 (1.7-7.0) K/uL Lymph # (Auto) 1.10 (0.90-2.90) K/uL [place] # (Auto) 0.50 (0.00-0.90) K/UL Eos # (Auto) 0.10 (0.00-0.50) K/uL Baso # (Auto) 0.03 (0.00-0.30) K/uL Abs Immat Gran (auto) 0.00 (0.00-0.30) K/uL Imm/Tot Granulo (auto) 0.0 % D-Dimer Quant (PE/DVT) < 0.27 (0.00-0.50) ug/ml Sodium 138 (135-149) mmol/L Potassium 4.3 (3.6-5.1) mmol/L Chloride 105 (96-114) mmol/L Carbon Dioxide 28 (20-32) mmol/L Anion Gap 5 L (7-15) mEq/L BUN 10 (5-24) mg/dL Creatinine 0.6 (0.5-1.5) mg/dL Estimated Creat Clear 100.85 Estimated GFR 116 ml/min Glucose 84 (60-115) mg/dL Calcium 9.6 (8.4-10.6) mg/dL SARS-CoV-2 (PCR) Negative SARS-CoV-2 (Negative) Influenza Type A (PCR) Negative PCR FLU A (Negative) Influenza Type B (PCR) Negative PCR FLU B (Negative) RSV (PCR) Negative PCR RSV (Negative) Imaging Data Chest x-ray: Attestation: I have reviewed the pertinent imaging results. My impression: By my read no acute infiltrates. Radiologist's impression: No focal consolidation, effusion or pneumothorax. Cardiac size is within normal limit without pulmonary edema. No acute osseous findings. Discharge Plan Discharge Clinical Impression: Cough Patient Disposition: Home, Self-Care Condition: Improved Additional Instructions: Nebulizer as needed every 4 hours while awake. I am hopeful that the dexamethasone will give you some relief of the lung inflammation and discomfort but not give you this side effect that you have when you take prednisone. Ibuprofen as needed for discomfort. You develop fever, worsening symptoms please return to the emergency room. Prescriptions: New (DME) nebulizer and compressor Device See Rx Instructions .Route Qty: 1 0RF Rx Instructions: As directed albuterol sulfate 2.5 mg /3 mL (0.083 %) solution for nebulization 2.5 mg inhalation QID PRNQty: 75 0RF No Action oxycodone 5 mg tablet 5 mg PO DAILY citalopram 20 mg tablet 20 mg PO DAILY valacyclovir 1 gram tablet 1,000 mg PO TID Qty: 21 0RF hydrocodone-acetaminophen 5-325 mg tablet 1 tab PO Q4-6H PRN (Reason: pain) Qty: 10 0RF methocarbamol 750 mg tablet 1,500 mg PO TID 5 Days Qty: 30 0RF Follow Up/Referrals: Evon Lange MD [Primary Care Provider, Obstetrics] Stand Alone Forms: [facility] Info Instructions
--- NOTE | 2024-11-05 11:06 | CRLHL7_ITS ---
For Patients: As a result of the Century Cures Act, medical imaging exams and procedure reports are released immediately into your electronic medical record. You may view this report before your referring provider. If you have questions, please contact your health care provider. INDICATION: Cough TECHNIQUE: Chest 2 views. COMPARISON: X-ray chest April 2019 FINDINGS/ IMPRESSION: No focal consolidation, effusion or pneumothorax. Cardiac size is within normal limit without pulmonary edema. No acute osseous findings. Dictated by Kelly Alejandra MD @ 11/05/2024 11:55:20 AM (Electronically Signed)
[2024-11-05 11:18] LABS: Hematocrit 44.8 % (33.0-51.0); Hemoglobin* 15.0 gm/dL (12.0-16.0); Immature Granulocytes Abs Auto 0.00 K/uL (0.00-0.30); Immature Granulocytes Pct Auto 0.0 %; Mean Corpuscular HGB Conc 34 gm/dL (32-36); Mean Corpuscular Hemoglobin 30 pg (26-34); Mean Corpuscular Volume 90 fL (80-100); RDW Coefficient of Variation % 13.4 % (11.5-15.5); Red Blood Count 4.96 m/uL (4.00-5.20); White Blood Count* 6.78 K/uL (4.50-11.00)
[2024-11-05] MEDS: ALBUTEROL SULFATE 2.5 MG/3 ML VIAL.NEB NEB (11:21)
[2024-11-05 11:23] LABS: Lymphocytes Absolute Auto 1.10 K/uL (0.90-2.90); Slide Review Reflex No
--- NOTE | 2024-11-05 11:26 | RESP.RT ---
Patient is currently on room air resting comfortably. She stated that she has had a cough for 3 days and is now having some nasal congestion. She does not have hx of inhalers or nebs needed in the past. She has a congested cough that is slightly productive early in the mornings. She did state that she has a history of summer allergies, but doesn't believe that this is what is the current issue. The air quality has been in an unhealthy range here for the past few days and is probably contributing to this current issue.
[2024-11-05 11:31] LABS: Chloride* 105 mmol/L (96-114); Potassium* 4.3 mmol/L (3.6-5.1); Sodium* 138 mmol/L (135-149)
[2024-11-05 11:34] LABS: Anion Gap 5 mEq/L (7-15); Blood Urea Nitrogen* 10 mg/dL (5-24); Calcium* 9.6 mg/dL (8.4-10.6); Carbon Dioxide* 28 mmol/L (20-32); Creatinine* 0.6 mg/dL (0.5-1.5); Est. Creatinine Clearance* 100.85; Estimated Glomerular Filt Rate 116 ml/min; Glucose* 84 mg/dL (60-115)
[2024-11-05 11:40] LABS: D Dimer Quantitative* < 0.27 ug/ml (0.00-0.50)
[2024-11-05 12:00] LABS: PCR FLU A Negative PCR FLU A (Negative); PCR FLU B Negative PCR FLU B (Negative); PCR RSV Negative PCR RSV (Negative); SARS PCR* Negative SARS-CoV-2 (Negative)
[2024-11-05] MEDS: DEXAMETHASONE 10 MG/ML PF 8 MG IVP (12:17)
[2024-11-05 12:18] VITALS: PULSE 60; RESP 16; O2SAT 96
== END 2024-11-05 12:25 | disposition home or self-care (01) ==
PROVIDERS: Emergency Provider Family Medicine; PCP Family Medicine
DX: R05.9 Cough, unspecified (principal)
CPT/HCPCS: 36415; 71046; 80048; 85025; 85379; 87631; 94640; 99284; J1100